=== PATIENT | male | born 1960 ===

== ENCOUNTER 2017-11-08 09:27 | Day surgery (SDC) | payer SELFPAY ==
[2017-10-31 11:49] VITALS: BMI 32.1
[~2017-11-08 09:27] MED LIST: Propofol 10 mg/ml Inj (20 ML) ONE
[2017-11-08] MEDS ORDERED: HYDROmorphone 0.5 mg/0.5 ml ISec IVP PRN (09:59)
[2017-11-08] MEDS ORDERED: Lactated Ringer's 1,000 ML IV SCH (10:00)
[2017-11-08] MEDS ORDERED: Gentamicin 160 MG in Sodium Chloride 0.9% 100 ML IVPB ONE (10:33)
[2017-11-08] MEDS ORDERED: Iohexol 240 (50 ml) ONE (10:34)
[2017-11-08] MEDS ORDERED: Lidocaine 2% Jelly (Uro-Jet) ONE (10:34)
[2017-11-08] MEDS ORDERED: ePHEDrine 50 mg/ml Inj ONE (11:24)
--- NOTE | 2017-11-08 12:42 | PCM.SURG1 ---
Surgeon's Initial Post Op Note - Surgeon's Notes Surgeon: Grayson Cohen Nuclear Medicine Technician: none Type of Anesthesia: General LMA Pre-Operative Diagnosis: R ureteral calculus. R renal calculus Operative Findings: same Post-Operative Diagnosis: same Operation Performed: cystoscopy. R ureteroscopy, laser uretero-lithotripsy, stone basketing. R flexible uretrorenoscopy, stone transposition, laser lithotripsy. Stent insertion Specimen/Specimens Removed: uretral stone fragments. renal stone fragments Estimated Blood Loss: EBL {In ML}: 0 Blood Products Given: N/A Post-Op Condition: Good Date of Surgery/Procedure: 11/08/17 Time of Surgery/Procedure: 12:35
[2017-11-08] MEDS ORDERED: Lactated Ringer's 1,000 ML IV ONE (12:49)
[2017-11-08] MEDS ORDERED: HYDROmorphone 0.5 mg/0.5 ml ISec ONE ×2 (13:05→13:28)
[2017-11-08] MEDS: HYDROmorphone 0.5 mg/0.5 ml ISec IVP PRN ×2 (13:05→13:27)
[2017-11-08 14:30] VITALS: O2SAT 100
[2017-11-08] MEDS ORDERED: Oxycodone/Acetaminophen 5/325 mg Tab PO PRN (14:36)
[2017-11-08 15:20] VITALS: RESP 16; TEMP 97.4
--- NOTE | 2017-11-08 16:31 | RAD ---
Indication: Right renal stone, urolithiasis Abdomen with oblique radiographs Comparison: None available Findings: Right ureteral stent. 12 x 8 mm right upper pole calcification consistent with renal calculus. Subsequent images demonstrate smaller fragmented calculi the level the right kidney. Tiny left upper quadrant calcifications may reflect renal calculi. Nonobstructive bowel gas pattern. Degenerative changes of the lumbar spine. Impression: Right ureteral stent. Initial images demonstrate 12 x 8 mm right upper pole calcification consistent with renal calculus. Subsequent images within this examination with time stamp approximately 1.5 hrs. later demonstrate smaller fragmented calculi the level the right kidney. Correlate clinically. Tiny left upper quadrant calcifications may also reflect renal calculi.
--- NOTE | 2017-11-08 16:38 | RAD ---
PROCEDURE: Intraoperative Fluoroscopy. HISTORY: RT. RENAL STONE FINDINGS: Fluoroscopic assistance was provided. 119.1 seconds fluoroscopy tightening this procedure. Radiation dose = 3.71 mGy- cm.. Please refer to the operative report from Dr. SPANN, PINELAND.
[2017-11-08 18:23] VITALS: BP 157/86; PULSE 65
--- NOTE | 2017-11-11 12:05 | OP ---
PROCEDURE DATE: PREOPERATIVE DIAGNOSIS: Urolithiasis. POSTOPERATIVE DIAGNOSES: Urolithiasis. Right ureteral calculus. Right renal calculus. PROCEDURES: Cystoscopy. Right ureteroscopy. Laser right ureteral lithotripsy. Right ureteral stone basketing. For the procedure right flexible ureterorenoscopy. Right renal stone transposition. Right renal laser lithotripsy. Insertion of right ureteral stent. Procedure was performed under video endoscopic control as well as on the fluoroscopic control. DESCRIPTION OF PROCEDURE: Procedure as follows; the patient received perioperative antibiotics. The patient was placed in lithotomy position. Genitalia prepped and draped sterilely. General anesthesia was administered. A 22-Finnish cystoscope sheath was introduced under direct vision. Urethra, prostate, bladder were inspected. Urine was sent for bacteriologic examination. There was noted to be mild cystitis. There was no bladder tumor. There was no bladder stone. The right ureteral stent was in place. The stent was grasped using the rigid grasping forceps and brought up to the level of the distal end of the cystoscope sheath. A 0.035-inch guidewire was inserted into the ureteral stent. The guidewire was passed up to level of kidney. The admission liaison fluoroscopy revealed the right distal ureteral stone as well as a right renal stone. The 7-Finnish mini rigid ureteroscope was introduced through the cystoscope sheath. The right ureteral orifice identified. A second guidewire was inserted under ureteroscopic control into the orifice and passed up to level of kidney. The ureteroscope was advanced in an atraumatic fashion under direct vision. The right ureteral stone was encountered. Ureteral laser lithotripsy was performed with the holmium laser and 365 micron fiber. There was excellent fragmentation obtained. All fragments were removed using the stone basket. The guidewire was reinserted up to level of kidney. A ureteral access sheath 12/14 Finnish was inserted over the wire. Under fluoroscopic control, after the cystoscope sheath had been removed. Ureterorenoscopy was performed using the 7-Finnish flexible ureteroscope. Ureteroscope passed over the guidewire over the working wire into the ureter and then into the kidney. Ureterorenoscopy was performed. The stone was encountered. Attempt at laser lithotripsy was performed with the stone in the lower pole. However, the stone and laser fiber could not be seen at the same time. The stone was engaged with the stone basket. The stone was then moved under video endoscopic control as well as under fluoroscopic control from the lower pole to the upper pole. Laser lithotripsy was then performed under direct vision. Excellent fragmentation of the right renal stone was obtained. Ureteroscope was then removed under direct vision along with the ureteral access sheath. The ureter was intact without mucosal injury. The cystoscope was back loaded over the remaining safety wire. The 6-Finnish multilength stent was inserted over the guidewire. Proper stent position was confirmed with fluoroscopy and endoscopy. A distal suture was left to exit per urethra from the stent. The bladder was then drained. Cystoscope sheath removed. The rectal examination was performed. Prostate was supple and smooth approximately 25-30 grams in size, without fixation, induration or nodularity. The patient tolerated procedure without complication. Jaleesa Cohen MD
== END 2017-11-08 17:22 | disposition home or self-care (01) ==
LOC: C.SDS 09:27
PROVIDERS: ATTEND Urology
DX: N20.2 Calculus of kidney with calculus of ureter (principal); I10 Essential (primary) hypertension; E78.5 Hyperlipidemia, unspecified; F17.210 Nicotine dependence, cigarettes, uncomplicated
CPT/HCPCS: 52356; 74019; 82355; 82365; 82948; 87086; J1170; J1580; J7120

== ENCOUNTER 2017-12-09 23:53 | Inpatient (IN) | payer MEDICAID, SELFPAY ==
[2017-12-09 23:53] VITALS: BMI 32.1
[2017-12-10] MEDS ORDERED: Sodium Chloride 0.9% 1,000 ML IV ONE (00:19)
--- NOTE | 2017-12-10 00:19 | C.PDOC ---
History Of Present Illness Patient presents to the ER with a complaint of increased urinary frequency, urgency, and difficulty urinating. Patient states he goes to the bathroom, voids a little, then feels like he has to go again. Patient also reports having associated fever and chills; but denies nausea or vomiting. Time Seen by Provider: 12/10/17 00:19 Chief Complaint (Nursing): Male Genitourinary History Per: Patient History/Exam Limitations: no limitations Onset/Duration Of Symptoms: Hrs Current Symptoms Are (Timing): Still Present Severity: Moderate Pain Scale Rating Of: 4 Quality Of Discomfort: Unable To Describe Associated Symptoms: Fever, Chills, Urinary Symptoms (Frequency, urgency, difficulty voiding). denies: Nausea, Vomiting Alleviating Factors: None Recent travel outside of the [place]: No Additional History Per: Family Past Medical History Reviewed: Historical Data, Nursing Documentation, Vital Signs Vital Signs: Last Vital Signs Temp 100.8 F H 12/10/17 01:01 Pulse 85 12/10/17 01:01 Resp 20 12/10/17 01:01 BP 159/77 H 12/10/17 00:01 Pulse Ox 97 12/10/17 01:01 - Medical History PMH: HTN, Hypercholesterolemia, Kidney Stones, Chronic Kidney Disease Family History: States: No Known Family Hx - Social History Hx Alcohol Use: No Hx Substance Use: No - Immunization History Hx Tetanus Toxoid Vaccination: No Hx Influenza Vaccination: Yes Hx Pneumococcal Vaccination: Yes Review Of Systems Constitutional: Positive for: Fever, Chills Gastrointestinal: Negative for: Nausea, Vomiting Genitourinary: Positive for: Frequency, Other (Urgency, Difficulty voiding) Physical Exam - Physical Exam Appears: Non-toxic Skin: Warm, Dry Head: Normacephalic Eye(s): bilateral: Normal Inspection Oral Mucosa: Moist Neck: Supple Chest: Symmetrical, No Tenderness Cardiovascular: Rhythm Regular Respiratory: No Rales, No Rhonchi, No Wheezing Gastrointestinal/Abdominal: Soft, Tenderness (Suprapubic), No Guarding, No Rebound Back: No CVA Tenderness, Other (Mild right flank tenderness) Male Genital: No Testicular Swelling, No Inguinal Tenderness Extremity: Normal ROM Extremity: Bilateral: Atraumatic Pulses: Left Dorsalis Pedis: Normal, Right Dorsalis Pedis: Normal Neurological/Psych: Oriented x3, Normal Speech Gait: Steady ED Course And Treatment - Laboratory Results Result Diagrams: 12/10/17 00:29 12/10/17 00:29 O2 Sat by Pulse Oximetry: 98 (Room air) Pulse Ox Interpretation: Normal Progress Note: Blood work and urinalysis ordered. IV fluids and tylenol administered. Disposition Discussed With Dr.: Ben El Comment: accepted the pt on his service and took over the care at 3:18 AM Doctor Will See Patient In The: ED Counseled Patient/Family Regarding: Studies Performed, Diagnosis - Disposition Referrals: Damon Mcmahon MD [Primary Care Provider] - Disposition: HOSPITALIZED Disposition Time: 00:19 Condition: FAIR Forms: [facility] (Polish) - Clinical Impression Clinical Impression: Pyelonephritis - Scribe Statement The provider has reviewed the documentation as recorded by the Scribe Daniel Swenson All medical record entries made by the Scribe were at my direction and personally dictated by me. I have reviewed the chart and agree that the record accurately reflects my personal performance of the history, physical exam, medical decision making, and the department course for this patient. I have also personally directed, reviewed, and agree with the discharge instructions and disposition. Decision To Admit - Pt Status Changed To: Hospital Disposition Of: Inpatient - Admit Certification Admit to Inpatient:: After my assessment, the patient will require hospitalization for at least two midnights. This is because of the severity of symptoms shown, intensity of services needed, and/or the medical risk in this patient being treated as an outpatient. - InPatient: Physician Admission Certification: I certify that this patient requires 2 or more midnights of care for the following reason:: After my assessment, the patient will require hospitalization for at least two midnights. This is because of the severity of symptoms shown, intensity of services needed, and/or the medical risk in this patient being treated as an outpatient. - . Bed Request Type: Regular Admitting Physician: Ben El Patient Diagnosis: Pyelonephritis
[2017-12-10] MEDS ORDERED: Sodium Chloride 0.9% 1,000 ML ONE (00:26)
[2017-12-10 00:32] LABS: BASO # 0.1 K/uL (0.0-0.2); BASO % 0.7 % (0.0-2.0); EOS % 0.2 % (0.0-4.0); HEMOGLOBIN 12.6 g/dL (12.0-18.0); LYMPH # 2.1 K/uL (1.0-4.3); LYMPH % 11.2 % (20.0-40.0); MEAN CELL VOLUME 90.1 fL (80.0-94.0); MEAN CORPUSCULAR HEMOGLOBIN 30.3 pg (27.0-31.0); MEAN CORPUSCULAR HGB CONC 33.6 g/dL (33.0-37.0); MEAN PLATELET VOLUME 6.9 fL (7.2-11.7); MONO # 2.2 K/uL (0.0-0.8); MONO % 11.7 % (0.0-10.0); NEUT # 14.5 K/uL (1.8-7.0); NEUT % 76.2 % (50.0-75.0); RBC 4.15 Mil/uL (4.40-5.90); RED CELL DISTRIBUTION WIDTH 13.7 % (11.5-14.5)
[2017-12-10 00:43] LABS: VENOUS BLOOD GAS BASE EXCESS -3.2 mmol/L (0.0-2.0); VENOUS BLOOD GAS PCO2 29 mmHg (40-60); VENOUS BLOOD GAS PO2 39 mm/Hg (30-55); VENOUS BLOOD PH 7.44 (7.32-7.43)
[2017-12-10 00:45] LABS: ALB/GLOB RATIO 1.4 (1.0-2.1); ALBUMIN 4.4 g/dL (3.5-5.0); ALT/SGPT 41 U/L (21-72); AST/SGOT 33 U/L (17-59); BLOOD UREA NITROGEN 18 mg/dL (9-20); CALCIUM 8.9 mg/dl (8.6-10.4); GFR AFRICAN-AMERICAN > 60; GFR NON-AFRICAN AMERICAN > 60
[2017-12-10] MEDS ORDERED: Piperacillin/Tazobact 3.375 gm 100 ML IVPB STA (00:47)
[2017-12-10 00:51] LABS: SQUAMOUS EPITHIAL < 1 /hpf (0-5); URINE BACTERIA MOD (<OCC); URINE BILIRUBIN NEGATIVE (NEGATIVE); URINE BLOOD 3+ (NEGATIVE); URINE CLARITY Hazy (Clear); URINE COLOR Red (YELLOW); URINE GLUCOSE (UA) NORMAL (Normal); URINE LEUKOCYTE ESTERASE 3+ Leu/uL (Negative); URINE PROTEIN 2+ mg/dL (NEGATIVE); URINE UROBILINOGEN NORMAL mg/dL (0.2-1.0)
[2017-12-10] MEDS ORDERED: Piperacill/Tazo 3.375gm in Dex 3.375 GM/50 ML BAG IVPB STA (00:51)
[2017-12-10] MEDS ORDERED: Iodixanol 320 MG/ML 100 ML BOTTLE IV ONE (03:43)
[2017-12-10] MEDS ORDERED: Glucagon Recombinant 1 mg Inj IM PRN (04:20)
[2017-12-10] MEDS ORDERED: Dextrose 50% SYRINGE Inj (50 ml) IV PRN (04:20)
--- NOTE | 2017-12-10 04:33 | CP.PCM.HP ---
Addendum entered and electronically signed by Mary Beth Higgins 12/10/17 04:51 : Constipation meds: colace 100mg po BID Lactulose 20gm po HS Original Note: <Mary Beth Higgins - Last Filed: 12/10/17 04:24> History of Present Illness - History of Present Illness History of Present Illness: CC: pain with urination HPI: Patient is a 56 year old male with past medical history of HTN, DM II, HLD , and TIA (02/13) who presents today for worsening urinary symptoms. Patient had some increased urination with darkening in color starting one month ago. He was given a referral to see Dr. Jaleesa Cohen who prescribed him Tamsulosin .4 mg daily and Doxycycline 100mg BID for 10 days (according to the bottle). Patient was taking the Doxycyline once a day since first prescribed one month ago. This past week patient's symptoms have been worsening. Patient says he has burning when he urinates and feels the urge to urinate often but can only urinate a little bit at a time. He also says his urine is dark in color. For the past day patient has felt subjective fevers. He went to Dr. Cohen's office who told him to go to the ER. Patient says this past week he has also been having right sided lower abdominal pain which radiates to the back. At its worst it is a 9/10 , but currently in the ER he rates it as a 5/10. Patient also complains of constipation for the past two months. He has been having bowel movements, but it is less than usual. He has been trying to manage the constipation by adding aloe and cucumber juice to his diet. Patient also complains of lethargy in his lower legs for the past two months. He is still able to walk normally and has no pain, but feels his legs are very tired. Patient denies any chest pain, shortness of breath, nausea, or vomiting. PMD: Dr. Mcmahon PMHx: HTN, DMII, HLD, TIA (02/13) Psurg: none Famhx: Mom: DMII, glaucoma Socialhx: started smoking 10 years ago about 3-4 cigarettes per day, denies alcohol and drug use Allergies:NKDA Home meds: Glimepiride 2mg po daily, Doxycycline 100mg po BID (taking one per day), Neurontin 100mg po dialy, Lipitor 40mg po daily, Flomax .4 mg po daily, Lisinopril 20mg po daily, Metformin 500 mg po daily Present on Admission - Present on Admission Any Indicators Present on Admission: No History of DVT/PE: No History of Uncontrolled Diabetes: No Urinary Catheter: No Decubitus Ulcer Present: No Review of Systems - Constitutional Constitutional: Chills, Fever, Headache - EENT Eyes: absent: Blurred Vision Nose/Mouth/Throat: absent: Nasal Congestion, Sore Throat - Cardiovascular Cardiovascular: absent: Chest Pain, Dyspnea, Leg Edema, Palpitations - Respiratory Respiratory: absent: Cough, Dyspnea, Chest Congestion - Gastrointestinal Gastrointestinal: Abdominal Pain, Constipation. absent: Diarrhea, Nausea, Vomiting - Genitourinary Genitourinary: Change in Urinary Stream, Difficulty Urinating, Dysuria, Nocturia , Urinary Frequency, Urinary Urgency, Voiding Freq/Small Amts - Musculoskeletal Musculoskeletal: absent: Myalgias - Integumentary Integumentary: absent: Rash - Neurological Neurological: Weakness. absent: Numbness, Tingling - Hematologic/Lymphatic Hematologic: absent: Easy Bleeding, Easy Bruising Past Patient History - Infectious Disease Hx of Infectious Diseases: None - Past Medical History & Family History Past Medical History?: Yes - Past Social History Smoking Status: Light Smoker < 10 Cigarettes Daily - CARDIAC Hx Hypercholesterolemia: Yes Hx Hypertension: Yes - NEUROLOGICAL Hx Neurological Disorder: Yes HX Cerebrovascular Accident: Yes - RENAL Hx Chronic Kidney Disease: Yes Hx Kidney Stones: Yes - ENDOCRINE/METABOLIC Hx Endocrine Disorders: Yes Hx Diabetes Mellitus Type 2: Yes - GENITOURINARY/GYNECOLOGICAL Hx Genitourinary Disorders: Yes Hx Hematuria: Yes - PSYCHIATRIC Hx Substance Use: No - SURGICAL HISTORY Hx Surgeries: Yes Other/Comment: Right kidney stent - ANESTHESIA Hx Anesthesia: Yes Hx Anesthesia Reactions: No Hx Malignant Hyperthermia: No Meds Allergies/Adverse Reactions: Allergies Allergy/AdvReac Type Severity Reaction Status Date / Time No Known Allergies Allergy Verified 12/09/17 23:56 Physical Exam - Constitutional Appears: Non-toxic - Head Exam Head Exam: ATRAUMATIC, NORMAL INSPECTION, NORMOCEPHALIC - Eye Exam Eye Exam: EOMI, Normal appearance - ENT Exam ENT Exam: Mucous Membranes Moist - Respiratory Exam Respiratory Exam: Clear to Auscultation Bilateral, NORMAL BREATHING PATTERN. absent: Rales, Rhonchi, Wheezes, Respiratory Distress, Stridor - Cardiovascular Exam Cardiovascular Exam: REGULAR RHYTHM, RRR, +S1, +S2 - GI/Abdominal Exam GI & Abdominal Exam: Normal Bowel Sounds, Soft, Tenderness - Extremities Exam Extremities exam: Positive for: normal inspection. Negative for: pedal edema, tenderness - Back Exam Back exam: NORMAL INSPECTION. absent: CVA tenderness (L), CVA tenderness (R), paraspinal tenderness - Neurological Exam Neurological exam: Alert, Oriented x3 - Psychiatric Exam Psychiatric exam: Normal Affect, Normal Mood - Skin Skin Exam: Intact, Normal Color, Warm Results - Vital Signs Recent Vital Signs: Last Vital Signs Temp 100.8 F H 12/10/17 01:01 Pulse 85 12/10/17 01:01 Resp 20 12/10/17 01:01 BP 159/77 H 12/10/17 00:01 Pulse Ox 98 12/10/17 03:20 - Labs Result Diagrams: 12/10/17 00:29 12/10/17 00:29 Labs: Laboratory Results - last 24 hr 12/10/17 12/10/17 12/10/17 00:29 00:29 00:29 WBC 19.0 H D RBC 4.15 L Hgb 12.6 Hct 37.4 MCV 90.1 D MCH 30.3 MCHC 33.6 RDW 13.7 Plt Count 274 MPV 6.9 L Neut % (Auto) 76.2 H Lymph % (Auto) 11.2 L Walton % (Auto) 11.7 H Eos % (Auto) 0.2 Baso % (Auto) 0.7 Neut # (Auto) 14.5 H Lymph # (Auto) 2.1 Walton # (Auto) 2.2 H Eos # (Auto) 0.0 Baso # (Auto) 0.1 pO2 VBG pH VBG pCO2 VBG HCO3 VBG Total CO2 VBG O2 Sat (Calc) VBG Base Excess VBG Potassium Glucose Lactate Sodium 133 Potassium 4.4 Chloride 94 L Carbon Dioxide 25 Anion Gap 20 BUN 18 Creatinine 1.0 Est GFR ( Amer) > 60 Est GFR (Non-Af Amer) > 60 Random Glucose 143 H Calcium 8.9 Total Bilirubin 0.8 AST 33 ALT 41 Alkaline Phosphatase 82 Total Protein 7.5 Albumin 4.4 Globulin 3.1 Albumin/Globulin Ratio 1.4 Venous Blood Potassium Urine Color Red Urine Clarity Hazy Urine pH 5.0 Ur Specific [place] 1.009 Urine Protein 2+ H Urine Glucose (UA) Normal Urine Ketones Negative Urine Blood 3+ H Urine Nitrate Positive H Urine Bilirubin Negative Urine Urobilinogen Normal Ur Leukocyte Esterase 3+ H Urine WBC (Auto) 300 H Urine RBC (Auto) 99 H Ur Squamous Epith Cells < 1 Ur Transition Epith Cell < 1 Urine Bacteria Mod H 12/10/17 00:39 WBC RBC Hgb Hct MCV MCH MCHC RDW Plt Count MPV Neut % (Auto) Lymph % (Auto) Walton % (Auto) Eos % (Auto) Baso % (Auto) Neut # (Auto) Lymph # (Auto) Walton # (Auto) Eos # (Auto) Baso # (Auto) pO2 39 VBG pH 7.44 H VBG pCO2 29 L VBG HCO3 21.9 VBG Total CO2 20.6 L VBG O2 Sat (Calc) 80.0 H VBG Base Excess -3.2 L VBG Potassium 2.7 L Glucose 117 H Lactate 0.6 L Sodium 136.0 Potassium Chloride 107.0 Carbon Dioxide Anion Gap BUN Creatinine Est GFR ( Amer) Est GFR (Non-Af Amer) Random Glucose Calcium Total Bilirubin AST ALT Alkaline Phosphatase Total Protein Albumin Globulin Albumin/Globulin Ratio Venous Blood Potassium 2.7 L Urine Color Urine Clarity Urine pH Ur Specific [place] Urine Protein Urine Glucose (UA) Urine Ketones Urine Blood Urine Nitrate Urine Bilirubin Urine Urobilinogen Ur Leukocyte Esterase Urine WBC (Auto) Urine RBC (Auto) Ur Squamous Epith Cells Ur Transition Epith Cell Urine Bacteria Assessment & Plan - Assessment and Plan (Free Text) Assessment: 1. Pyelonephritis WBC: 19, follow cbc UA: protein 2+, blood 3+, nitrate positive, leuk esterase 3+, wbc 300, rbc 99, bacteria moderate f/u urine culture, blood culture, procalc f/u abd and pelvis CT with iv contrast Meds: Tylenol 650mg prn fevers Zosyn 3.375 q6h 2. BPH Flomax .4 mg po daily 3. DM II accuchecks ACHS hypoglycemia protocol f/u HgA1C Meds: Neurontin 100mg po daily Glimepiride 2mg po daily hold metformin ISS-low 4. HTN Lisinopril 20mg po daily 5. HLD f/u lipid panel Crestor 10mg po HS 6. Prophylaxis Heparin 5000 u sc q8h, scds Pepcid 20mg po daily diabetic and heart healthy diet <Ben El - Last Filed: 12/10/17 06:25> Results - Vital Signs Recent Vital Signs: Last Vital Signs Temp 98.7 F 12/10/17 04:30 Pulse 79 12/10/17 04:30 Resp 20 12/10/17 04:30 BP 126/70 12/10/17 04:30 Pulse Ox 96 12/10/17 04:30 - Labs Result Diagrams: 12/10/17 00:29 12/10/17 00:29 Labs: Laboratory Results - last 24 hr 12/10/17 12/10/17 12/10/17 00:29 00:29 00:29 WBC 19.0 H D RBC 4.15 L Hgb 12.6 Hct 37.4 MCV 90.1 D MCH 30.3 MCHC 33.6 RDW 13.7 Plt Count 274 MPV 6.9 L Neut % (Auto) 76.2 H Lymph % (Auto) 11.2 L [place] % (Auto) 11.7 H Eos % (Auto) 0.2 Baso % (Auto) 0.7 Neut # (Auto) 14.5 H Lymph # (Auto) 2.1 [place] # (Auto) 2.2 H Eos # (Auto) 0.0 Baso # (Auto) 0.1 pO2 VBG pH VBG pCO2 VBG HCO3 VBG Total CO2 VBG O2 Sat (Calc) VBG Base Excess VBG Potassium Glucose Lactate Sodium 133 Potassium 4.4 Chloride 94 L Carbon Dioxide 25 Anion Gap 20 BUN 18 Creatinine 1.0 Est GFR ( Amer) > 60 Est GFR (Non-Af Amer) > 60 POC Glucose (mg/dL) Random Glucose 143 H Calcium 8.9 Total Bilirubin 0.8 AST 33 ALT 41 Alkaline Phosphatase 82 Total Protein 7.5 Albumin 4.4 Globulin 3.1 Albumin/Globulin Ratio 1.4 Venous Blood Potassium Urine Color Red Urine Clarity Hazy Urine pH 5.0 Ur Specific [place] 1.009 Urine Protein 2+ H Urine Glucose (UA) Normal Urine Ketones Negative Urine Blood 3+ H Urine Nitrate Positive H Urine Bilirubin Negative Urine Urobilinogen Normal Ur Leukocyte Esterase 3+ H Urine WBC (Auto) 300 H Urine RBC (Auto) 99 H Ur Squamous Epith Cells < 1 Ur Transition Epith Cell < 1 Urine Bacteria Mod H 12/10/17 12/10/17 00:39 04:38 WBC RBC Hgb Hct MCV MCH MCHC RDW Plt Count MPV Neut % (Auto) Lymph % (Auto) [place] % (Auto) Eos % (Auto) Baso % (Auto) Neut # (Auto) Lymph # (Auto) [place] # (Auto) Eos # (Auto) Baso # (Auto) pO2 39 VBG pH 7.44 H VBG pCO2 29 L VBG HCO3 21.9 VBG Total CO2 20.6 L VBG O2 Sat (Calc) 80.0 H VBG Base Excess -3.2 L VBG Potassium 2.7 L Glucose 117 H Lactate 0.6 L Sodium 136.0 Potassium Chloride 107.0 Carbon Dioxide Anion Gap BUN Creatinine Est GFR ( Amer) Est GFR (Non-Af Amer) POC Glucose (mg/dL) 138 H Random Glucose Calcium Total Bilirubin AST ALT Alkaline Phosphatase Total Protein Albumin Globulin Albumin/Globulin Ratio Venous Blood Potassium 2.7 L Urine Color Urine Clarity Urine pH Ur Specific [place] Urine Protein Urine Glucose (UA) Urine Ketones Urine Blood Urine Nitrate Urine Bilirubin Urine Urobilinogen Ur Leukocyte Esterase Urine WBC (Auto) Urine RBC (Auto) Ur Squamous Epith Cells Ur Transition Epith Cell Urine Bacteria Assessment & Plan - Date & Time Date: 12/10/17 (I have seen and examined the patient. I agree with the findings and plan of care as documented by Dr. Higgins. Patient with pyelonephritis. Previously treated for possible UTI with Doxy but was taking medication incorrectly. Zosyn for now. Check urine and blood cultures. Continue Tamsulosin for history of BPH. Monitor for hemodynamic stability. Monitor for acute changes.) Time: 06:23 Attending/Attestation - Attestation I have personally seen and examined this patient.: Yes I have fully participated in the care of the patient.: Yes I have reviewed all pertinent clinical information: Yes
--- NOTE | 2017-12-10 05:01 | CT ---
EXAM: CT Abdomen and Pelvis With Intravenous Contrast CLINICAL HISTORY: 56 years old, male; Pain; Abdominal pain; Localized; Right lower quadrant (rlq); Prior surgery; Surgery date: 3-7 days post-operative; Additional info: Pyelonephritis TECHNIQUE: Axial computed tomography images of the abdomen and pelvis with intravenous contrast. All CT scans at this facility use one or more dose reduction techniques, viz.: automated exposure control; ma/kV adjustment per patient size (including targeted exams where dose is matched to indication; i.e. head); or iterative reconstruction technique. Coronal and sagittal reformatted images were created and reviewed. CONTRAST: 100 mL of [id number] administered intravenously. COMPARISON: No relevant prior studies available. FINDINGS: Lower thorax: Minimal atelectasis/scarring. ABDOMEN: Liver: Unremarkable. No mass. Gallbladder and bile ducts: No calcified stones. No ductal dilation. Pancreas: No ductal dilation. No mass. Spleen: No splenomegaly. Adrenals: No mass. Kidneys and ureters: Mild stranding about RIGHT kidney. Minimal stranding about LEFT kidney. Several small renal calculi. Minimal pelvocaliectasis of RIGHT kidney. Minimally dilated RIGHT ureter. RIGHT ureteral stent. Mild stranding about RIGHT ureter. Stomach and bowel: No definite mural thickening. No obstruction. Appendix: Normal caliber. No inflammation. PELVIS: Bladder: Borderline bladder wall thickening, 4-5 mm. Minimal haziness about bladder. Reproductive: Enlarged prostate gland. ABDOMEN and PELVIS: Intraperitoneal space: No significant fluid collection. No free air. Bones/joints: Degenerative changes of spine. No acute fracture. Soft tissues: Unremarkable. Vasculature: Mild atherosclerotic disease. No aneurysm. Lymph nodes: No pathologically enlarged lymph nodes. IMPRESSION: 1. Stranding about kidneys, right ureter, bladder. Correlate with urinalysis to exclude infection. 2. Prostate enlargement. Followup as clinically warranted. 3. Incidental/non-acute findings are described above.
[2017-12-10] MEDS: Piperacill/Tazo 3.375gm in Dex 3.375 GM/50 ML BAG IVPB SCH ×4 (05:30→22:03)
--- NOTE | 2017-12-10 07:48 | CP.PCM.PN ---
<Marc Dickerson - Last Filed: 12/10/17 13:18> Subjective - Date & Time of Evaluation Date of Evaluation: 12/10/17 Time of Evaluation: 07:20 - Subjective Subjective: Medicine progress note for Dr. Phillips Patient seen and examined at bedside. Patient reports improvements in his dysuria after starting IV antibiotics. Patient states that he is urinating an increased amount compared to before. He remains with mild abdominal tenderness in the right lower quadrant. Patient also complaining of constipation. His last BM was yesterday, but he noted it was very minimal. Objective - Vital Signs/Intake and Output Vital Signs (last 24 hours): Temp Pulse Resp BP Pulse Ox 98.7 F 79 20 126/70 96 12/10/17 04:30 12/10/17 04:30 12/10/17 04:30 12/10/17 04:30 12/10/17 04:30 - Medications Medications: Current Medications Acetaminophen (Tylenol 325mg Tab) 650 mg PO Q6 PRN PRN Reason: Fever >100.4 F Dextrose (Dextrose 50% Inj) 0 ml IV STAT PRN; Protocol PRN Reason: Hypoglycemia Protocol Dextrose (Glutose 15) 0 gm PO ONCE PRN; Protocol PRN Reason: Hypoglycemia Protocol Docusate Sodium (Colace) 100 mg PO BID [facility] Famotidine (Pepcid) 20 mg PO DAILY [facility] Gabapentin (Neurontin) 100 mg PO DAILY [facility] Glimepiride (Amaryl) 2 mg PO DAILY [facility] Glucagon (Glucagen Diagnostic Kit) 0 mg IM STAT PRN; Protocol PRN Reason: Hypoglycemia Protocol Heparin Sodium (Porcine) (Heparin) 5,000 units SC Q8 [facility] Last Admin: 12/10/17 06:00 Dose: 5,000 units Piperacillin Sod/Tazobactam Sod (Zosyn 3.375 Gm Iv Premix) 3.375 gm in 50 mls @ 100 mls/hr IVPB Q6H [facility] PRN Reason: Protocol Last Admin: 12/10/17 05:30 Dose: 100 mls/hr Insulin Human Regular (Novolin R) 0 unit SC ACHS [facility] PRN Reason: Protocol Lactulose (Enulose) 20 gm PO HS [facility] Lisinopril (Zestril) 20 mg PO DAILY [facility] Rosuvastatin Calcium (Crestor) 10 mg PO HS [facility] Tamsulosin HCl (Flomax) 0.4 mg PO DAILY [facility] - Labs Labs: 12/10/17 00:29 12/10/17 00:29 - Constitutional Appears: No Acute Distress - Head Exam Head Exam: ATRAUMATIC, NORMOCEPHALIC - Eye Exam Eye Exam: EOMI, Normal appearance - ENT Exam ENT Exam: Mucous Membranes Moist - Respiratory Exam Respiratory Exam: Clear to Ausculation Bilateral, NORMAL BREATHING PATTERN. absent: Rales, Rhonchi, Wheezes - Cardiovascular Exam Cardiovascular Exam: REGULAR RHYTHM, +S1, +S2 - GI/Abdominal Exam GI & Abdominal Exam: Soft, Tenderness (right lower quadrant minimal tenderness) , Normal Bowel Sounds - Extremities Exam Extremities Exam: absent: Pedal Edema, Tenderness - Back Exam Back Exam: absent: CVA tenderness (L), CVA tenderness (R) - Neurological Exam Neurological Exam: Alert, Awake, Oriented x3 - Psychiatric Exam Psychiatric exam: Normal Affect, Normal Mood - Skin Skin Exam: Dry, Warm Assessment and Plan - Assessment and Plan (Free Text) Plan: Pyelonephritis in the setting of Hx of Nephrolithiasis s/p ureteral stenting On admission, UA: protein 2+, blood 3+, nitrate positive, leuk esterase 3+, wbc 300, rbc 99, bacteria moderate f/u urine culture, blood culture Procalcitonin low CT abdomen/pelvis with IV contrast demonstrates mild right perinephric, right ureteral, and bladder stranding Urology consult Dr. Ale Cohen, help appreciated. f/u Abdominal X-ray with oblique views Meds: Tylenol 650mg prn fever Zosyn 3.375 q6h started 12/10 BPH Flomax 0.4 mg po daily History of DM II accuchecks ACHS hypoglycemia protocol HgA1C 7.3 Meds: Neurontin 100mg po daily Glimepiride 2mg po daily hold metformin ISS-low History of HTN Lisinopril 20mg po daily History of HLD Lipid panel unremarkable Home lipitor 40 mg not on formulary--Crestor 20mg po HS Prophylaxis Heparin 5000 u sc q8h, scds Pepcid 20mg po daily diabetic/heart healthy diet Discussed with Dr. Alan Dickerson PGY-1 <Merle Phillips - Last Filed: 12/10/17 17:54> Objective - Vital Signs/Intake and Output Vital Signs (last 24 hours): Temp Pulse Resp BP Pulse Ox 102.1 F H 90 20 130/75 95 12/10/17 08:31 12/10/17 08:31 12/10/17 08:31 12/10/17 08:31 12/10/17 08:31 Intake and Output: 12/10/17 12/10/17 06:59 18:59 Intake Total 350 730 Output Total 400 Balance 350 330 - Medications Medications: Current Medications Acetaminophen (Tylenol 325mg Tab) 650 mg PO Q6 PRN PRN Reason: Fever >100.4 F Last Admin: 12/10/17 08:17 Dose: 650 mg Dextrose (Dextrose 50% Inj) 0 ml IV STAT PRN; Protocol PRN Reason: Hypoglycemia Protocol Dextrose (Glutose 15) 0 gm PO ONCE PRN; Protocol PRN Reason: Hypoglycemia Protocol Docusate Sodium (Colace) 100 mg PO BID [facility] Last Admin: 12/10/17 10:03 Dose: 100 mg Famotidine (Pepcid) 20 mg PO DAILY [facility] Last Admin: 12/10/17 10:05 Dose: 20 mg Gabapentin (Neurontin) 100 mg PO DAILY [facility] Last Admin: 12/10/17 10:04 Dose: 100 mg Glimepiride (Amaryl) 2 mg PO DAILY [facility] Last Admin: 12/10/17 10:02 Dose: 2 mg Glucagon (Glucagen Diagnostic Kit) 0 mg IM STAT PRN; Protocol PRN Reason: Hypoglycemia Protocol Heparin Sodium (Porcine) (Heparin) 5,000 units SC Q8 [facility] Last Admin: 12/10/17 13:31 Dose: 5,000 units Piperacillin Sod/Tazobactam Sod (Zosyn 3.375 Gm Iv Premix) 3.375 gm in 50 mls @ 100 mls/hr IVPB Q6H [facility] PRN Reason: Protocol Last Admin: 12/10/17 10:06 Dose: 100 mls/hr Insulin Human Regular (Novolin R) 0 unit SC ACHS [facility] PRN Reason: Protocol Last Admin: 12/10/17 11:43 Dose: 1 unit Lactulose (Enulose) 20 gm PO HS [facility] Lisinopril (Zestril) 20 mg PO DAILY [facility] Last Admin: 12/10/17 10:05 Dose: 20 mg Pneumococcal Polyvalent Vaccine (Pneumovax 23 Vaccine) 0.5 ml IM .ONCE ONE Stop: 03/16/18 10:01 Polyethylene Glycol (Miralax) 17 gm PO DAILY [facility] Last Admin: 12/10/17 10:04 Dose: 17 gm Rosuvastatin Calcium (Crestor) 20 mg PO HS [facility] Tamsulosin HCl (Flomax) 0.4 mg PO DAILY [facility] Last Admin: 12/10/17 10:03 Dose: 0.4 mg - Labs Labs: 12/10/17 07:46 12/10/17 07:46 Attending/Attestation - Attestation I have personally seen and examined this patient.: Yes I have fully participated in the care of the patient.: Yes I have reviewed all pertinent clinical information, including history, physical exam and plan: Yes Notes (Text): Patient was seen and examined with the resident. has fever spikes,leukocytosis, UTI/ pyelonephritis. Has right uriteric stent in place.Has Diabetes mellitus on amaryl.Metformin on hold. HA1c 7.3. His sugar this afternoon is in 80ies We will continue zosyn.Follow urine and blood cultures. IV hydration and monitor sugar. urologist follow up appreciated Plan discussed with the resident .I agree with the resident's documentation of the assessment and plan
[2017-12-10] MEDS: (Novolin R) Insulin Human Regular 100 units/ml vial SC SCH ×4 (07:58→22:08)
[2017-12-10 08:14] LABS: BASO # 0.1 K/uL (0.0-0.2); BASO % 0.7 % (0.0-2.0); EOS # 0.1 K/uL (0.0-0.7); EOS % 0.6 % (0.0-4.0); HEMOGLOBIN 11.8 g/dL (12.0-18.0); LYMPH # 1.3 K/uL (1.0-4.3); LYMPH % 8.2 % (20.0-40.0); MEAN CELL VOLUME 89.7 fL (80.0-94.0); MEAN CORPUSCULAR HEMOGLOBIN 30.3 pg (27.0-31.0); MEAN CORPUSCULAR HGB CONC 33.8 g/dL (33.0-37.0); MEAN PLATELET VOLUME 7.3 fL (7.2-11.7); MONO % 12.6 % (0.0-10.0); NEUT # 12.4 K/uL (1.8-7.0); NEUT % 77.9 % (50.0-75.0); PLATELET COUNT 264 K/uL (130-400); RBC 3.88 Mil/uL (4.40-5.90); RED CELL DISTRIBUTION WIDTH 13.5 % (11.5-14.5); WHITE BLOOD COUNT 15.9 K/uL (4.8-10.8)
[2017-12-10 08:22] LABS: ALB/GLOB RATIO 1.3 (1.0-2.1); ALBUMIN 3.7 g/dL (3.5-5.0); ALT/SGPT 39 U/L (21-72); AST/SGOT 31 U/L (17-59); BLOOD UREA NITROGEN 15 mg/dL (9-20); CALCIUM 8.7 mg/dl (8.6-10.4); GFR AFRICAN-AMERICAN > 60; GFR NON-AFRICAN AMERICAN > 60; HDL CHOLESTEROL 42 mg/dL (30-70)
[2017-12-10 08:33] LABS: LDL CHOLESTEROL 71 mg/dL (0-129)
[2017-12-10 09:33] LABS: LYMPHOCYTE 10 % (20-40); MONOCYTE 7 % (0-10); NEUTROPHIL 83 % (50-75); PLATELET ESTIMATE NORMAL (NORMAL); TOTAL CELLS COUNTED 100
[2017-12-10 09:34] LABS: HYPOCHROMIC SLIGHT
[2017-12-10] MEDS: POLYETHYLENE GLYCOL 3350 17 GM/Dose PACKET PO SCH (10:04)
--- NOTE | 2017-12-10 14:11 | PCM.URO ---
Urology Progress Note - Objective Lab Studies: Reviewed (full note to be dictated and timing of stent removal to be discussed Plans for now : antibiotic therapy) Lab Results Last 24 Hours: Laboratory Results - last 24 hr 12/10/17 12/10/17 12/10/17 00:29 00:29 00:29 WBC 19.0 H D RBC 4.15 L Hgb 12.6 Hct 37.4 MCV 90.1 D MCH 30.3 MCHC 33.6 RDW 13.7 Plt Count 274 MPV 6.9 L Neut % (Auto) 76.2 H Lymph % (Auto) 11.2 L [place] % (Auto) 11.7 H Eos % (Auto) 0.2 Baso % (Auto) 0.7 Neut # (Auto) 14.5 H Lymph # (Auto) 2.1 [place] # (Auto) 2.2 H Eos # (Auto) 0.0 Baso # (Auto) 0.1 Neutrophils % (Manual) Lymphocytes % (Manual) Monocytes % (Manual) Platelet Estimate Hypochromasia (manual) pO2 VBG pH VBG pCO2 VBG HCO3 VBG Total CO2 VBG O2 Sat (Calc) VBG Base Excess VBG Potassium Glucose Lactate Sodium 133 Potassium 4.4 Chloride 94 L Carbon Dioxide 25 Anion Gap 20 BUN 18 Creatinine 1.0 Est GFR ( Amer) > 60 Est GFR (Non-Af Amer) > 60 POC Glucose (mg/dL) Random Glucose 143 H Hemoglobin A1c Calcium 8.9 Phosphorus Magnesium Total Bilirubin 0.8 AST 33 ALT 41 Alkaline Phosphatase 82 Total Protein 7.5 Albumin 4.4 Globulin 3.1 Albumin/Globulin Ratio 1.4 Triglycerides Cholesterol LDL Cholesterol Direct HDL Cholesterol Procalcitonin Venous Blood Potassium Urine Color Red Urine Clarity Hazy Urine pH 5.0 Ur Specific [place] 1.009 Urine Protein 2+ H Urine Glucose (UA) Normal Urine Ketones Negative Urine Blood 3+ H Urine Nitrate Positive H Urine Bilirubin Negative Urine Urobilinogen Normal Ur Leukocyte Esterase 3+ H Urine WBC (Auto) 300 H Urine RBC (Auto) 99 H Ur Squamous Epith Cells < 1 Ur Transition Epith Cell < 1 Urine Bacteria Mod H 12/10/17 12/10/17 12/10/17 00:39 04:38 07:19 WBC RBC Hgb Hct MCV MCH MCHC RDW Plt Count MPV Neut % (Auto) Lymph % (Auto) [place] % (Auto) Eos % (Auto) Baso % (Auto) Neut # (Auto) Lymph # (Auto) [place] # (Auto) Eos # (Auto) Baso # (Auto) Neutrophils % (Manual) Lymphocytes % (Manual) Monocytes % (Manual) Platelet Estimate Hypochromasia (manual) pO2 39 VBG pH 7.44 H VBG pCO2 29 L VBG HCO3 21.9 VBG Total CO2 20.6 L VBG O2 Sat (Calc) 80.0 H VBG Base Excess -3.2 L VBG Potassium 2.7 L Glucose 117 H Lactate 0.6 L Sodium 136.0 Potassium Chloride 107.0 Carbon Dioxide Anion Gap BUN Creatinine Est GFR ( Amer) Est GFR (Non-Af Amer) POC Glucose (mg/dL) 138 H 151 H Random Glucose Hemoglobin A1c Calcium Phosphorus Magnesium Total Bilirubin AST ALT Alkaline Phosphatase Total Protein Albumin Globulin Albumin/Globulin Ratio Triglycerides Cholesterol LDL Cholesterol Direct HDL Cholesterol Procalcitonin Venous Blood Potassium 2.7 L Urine Color Urine Clarity Urine pH Ur Specific [place] Urine Protein Urine Glucose (UA) Urine Ketones Urine Blood Urine Nitrate Urine Bilirubin Urine Urobilinogen Ur Leukocyte Esterase Urine WBC (Auto) Urine RBC (Auto) Ur Squamous Epith Cells Ur Transition Epith Cell Urine Bacteria 12/10/17 12/10/17 12/10/17 07:46 07:46 07:46 WBC 15.9 H RBC 3.88 L Hgb 11.8 L Hct 34.8 L MCV 89.7 MCH 30.3 MCHC 33.8 RDW 13.5 Plt Count 264 MPV 7.3 Neut % (Auto) 77.9 H Lymph % (Auto) 8.2 L [place] % (Auto) 12.6 H Eos % (Auto) 0.6 Baso % (Auto) 0.7 Neut # (Auto) 12.4 H Lymph # (Auto) 1.3 [place] # (Auto) 2.0 H Eos # (Auto) 0.1 Baso # (Auto) 0.1 Neutrophils % (Manual) 83 H Lymphocytes % (Manual) 10 L Monocytes % (Manual) 7 Platelet Estimate Normal Hypochromasia (manual) Slight pO2 VBG pH VBG pCO2 VBG HCO3 VBG Total CO2 VBG O2 Sat (Calc) VBG Base Excess VBG Potassium Glucose Lactate Sodium 133 Potassium 4.0 Chloride 99 Carbon Dioxide 21 L Anion Gap 17 BUN 15 Creatinine 0.9 Est GFR ( Amer) > 60 Est GFR (Non-Af Amer) > 60 POC Glucose (mg/dL) Random Glucose 157 H Hemoglobin A1c Calcium 8.7 Phosphorus 2.7 Magnesium 1.7 Total Bilirubin 1.0 AST 31 ALT 39 Alkaline Phosphatase 80 Total Protein 6.5 Albumin 3.7 Globulin 2.8 Albumin/Globulin Ratio 1.3 Triglycerides 68 Cholesterol 133 LDL Cholesterol Direct 71 HDL Cholesterol 42 Procalcitonin 0.18 L Venous Blood Potassium Urine Color Urine Clarity Urine pH Ur Specific [place] Urine Protein Urine Glucose (UA) Urine Ketones Urine Blood Urine Nitrate Urine Bilirubin Urine Urobilinogen Ur Leukocyte Esterase Urine WBC (Auto) Urine RBC (Auto) Ur Squamous Epith Cells Ur Transition Epith Cell Urine Bacteria 12/10/17 12/10/17 07:46 11:06 WBC RBC Hgb Hct MCV MCH MCHC RDW Plt Count MPV Neut % (Auto) Lymph % (Auto) [place] % (Auto) Eos % (Auto) Baso % (Auto) Neut # (Auto) Lymph # (Auto) [place] # (Auto) Eos # (Auto) Baso # (Auto) Neutrophils % (Manual) Lymphocytes % (Manual) Monocytes % (Manual) Platelet Estimate Hypochromasia (manual) pO2 VBG pH VBG pCO2 VBG HCO3 VBG Total CO2 VBG O2 Sat (Calc) VBG Base Excess VBG Potassium Glucose Lactate Sodium Potassium Chloride Carbon Dioxide Anion Gap BUN Creatinine Est GFR ( Amer) Est GFR (Non-Af Amer) POC Glucose (mg/dL) 189 H Random Glucose Hemoglobin A1c 7.3 H Calcium Phosphorus Magnesium Total Bilirubin AST ALT Alkaline Phosphatase Total Protein Albumin Globulin Albumin/Globulin Ratio Triglycerides Cholesterol LDL Cholesterol Direct HDL Cholesterol Procalcitonin Venous Blood Potassium Urine Color Urine Clarity Urine pH Ur Specific [place] Urine Protein Urine Glucose (UA) Urine Ketones Urine Blood Urine Nitrate Urine Bilirubin Urine Urobilinogen Ur Leukocyte Esterase Urine WBC (Auto) Urine RBC (Auto) Ur Squamous Epith Cells Ur Transition Epith Cell Urine Bacteria Intake & Output: Intake & Output 12/09/17 12/10/17 12/10/17 18:59 06:59 18:59 Intake Total 350 Balance 350 Weight 205 lb Intake: Intake, IV Amount 50 Left Antecubital 50 Oral 300 Other: # Voids Urine, Voided 1 # Bowel Movements 0 Vital Signs: Vital Signs - 24 hr 12/10/17 12/10/17 12/10/17 00:01 01:01 03:20 Temperature 101.4 F H 100.8 F H Pulse Rate 102 H 85 Pulse Rate [ Bilateral Radial] Respiratory 20 20 Rate Blood Pressure 159/77 H O2 Sat by Pulse 98 97 98 Oximetry 12/10/17 12/10/17 12/10/17 04:30 08:17 08:31 Temperature 98.3 F 100.1 F H 102.1 F H Pulse Rate 77 90 Pulse Rate [ 77 Bilateral Radial] Respiratory 20 20 Rate Blood Pressure 129/66 130/75 O2 Sat by Pulse 96 95 Oximetry
--- NOTE | 2017-12-10 16:22 | RAD ---
HISTORY: History of nephrolithiasis COMPARISON: November 08 1017 FINDINGS: BOWEL: . No obstruction. No free air. The prior right renal calculus is no longer appreciated at its prior position just lateral to the right proximal stent nor along any portion of the ureteral stent. No bladder calculi noted BONES: Lumbar spondylosis. Bilateral hip arthrosis OTHER FINDINGS: None. IMPRESSION: Prior right renal calculus no longer identified. No interval or urolithiasis
[2017-12-11] MEDS: Piperacill/Tazo 3.375gm in Dex 3.375 GM/50 ML BAG IVPB SCH ×4 (04:27→21:47)
--- NOTE | 2017-12-11 06:56 | CP.PCM.PN ---
<Marc Dickerson - Last Filed: 12/11/17 15:18> Subjective - Date & Time of Evaluation Date of Evaluation: 12/11/17 Time of Evaluation: 07:10 - Subjective Subjective: Medicine progress note for Dr. Phillips Patient seen and examined. Patient denies urinary symptoms at this time though he does state that he had some liquid diarrhea after the laxatives that were given yesterday. No other acute complaints at this time. Objective - Vital Signs/Intake and Output Vital Signs (last 24 hours): Temp Pulse Resp BP Pulse Ox 98.6 F 85 20 128/69 97 12/11/17 00:00 12/11/17 00:00 12/11/17 00:00 12/11/17 00:00 12/11/17 00:00 Intake and Output: 12/10/17 12/11/17 18:59 06:59 Intake Total 730 700 Output Total 400 350 Balance 330 350 - Medications Medications: Current Medications Acetaminophen (Tylenol 325mg Tab) 650 mg PO Q6 PRN PRN Reason: Fever >100.4 F Last Admin: 12/10/17 22:08 Dose: 650 mg Dextrose (Dextrose 50% Inj) 0 ml IV STAT PRN; Protocol PRN Reason: Hypoglycemia Protocol Dextrose (Glutose 15) 0 gm PO ONCE PRN; Protocol PRN Reason: Hypoglycemia Protocol Docusate Sodium (Colace) 100 mg PO BID [facility] Last Admin: 12/10/17 17:52 Dose: 100 mg Famotidine (Pepcid) 20 mg PO DAILY [facility] Last Admin: 12/10/17 10:05 Dose: 20 mg Gabapentin (Neurontin) 100 mg PO DAILY [facility] Last Admin: 12/10/17 10:04 Dose: 100 mg Glimepiride (Amaryl) 2 mg PO DAILY [facility] Last Admin: 12/10/17 10:02 Dose: 2 mg Glucagon (Glucagen Diagnostic Kit) 0 mg IM STAT PRN; Protocol PRN Reason: Hypoglycemia Protocol Heparin Sodium (Porcine) (Heparin) 5,000 units SC Q8 [facility] Last Admin: 12/11/17 06:13 Dose: 5,000 units Piperacillin Sod/Tazobactam Sod (Zosyn 3.375 Gm Iv Premix) 3.375 gm in 50 mls @ 100 mls/hr IVPB Q6H [facility] PRN Reason: Protocol Last Admin: 12/11/17 04:27 Dose: 100 mls/hr Insulin Human Regular (Novolin R) 0 unit SC [facility] PRN Reason: Protocol Last Admin: 12/10/17 22:08 Dose: Not Given Lactulose (Enulose) 20 gm PO HS [facility] Last Admin: 12/10/17 22:02 Dose: 20 gm Lisinopril (Zestril) 20 mg PO DAILY [facility] Last Admin: 12/10/17 10:05 Dose: 20 mg Pneumococcal Polyvalent Vaccine (Pneumovax 23 Vaccine) 0.5 ml IM .ONCE ONE Stop: 12/13/17 10:01 Polyethylene Glycol (Miralax) 17 gm PO DAILY [facility] Last Admin: 12/10/17 10:04 Dose: 17 gm Rosuvastatin Calcium (Crestor) 20 mg PO [facility] Last Admin: 12/10/17 22:10 Dose: 20 mg Tamsulosin HCl (Flomax) 0.4 mg PO DAILY [facility] Last Admin: 12/10/17 10:03 Dose: 0.4 mg - Labs Labs: 12/10/17 07:46 12/10/17 07:46 - Additional Findings Additional findings: - Constitutional Appears: No Acute Distress - Head Exam Head Exam: ATRAUMATIC, NORMOCEPHALIC - Eye Exam Eye Exam: EOMI, Normal appearance - ENT Exam ENT Exam: Mucous Membranes Moist - Respiratory Exam Respiratory Exam: Clear to Auscultation Bilateral, NORMAL BREATHING PATTERN. absent: Rales, Rhonchi, Wheezes - Cardiovascular Exam Cardiovascular Exam: REGULAR RHYTHM, +S1, +S2 - GI/Abdominal Exam GI & Abdominal Exam: Soft, Tenderness (right lower quadrant minimal tenderness) , Normal Bowel Sounds - Extremities Exam Extremities Exam: absent: Pedal Edema, Tenderness - Back Exam Back Exam: absent: CVA tenderness (L), CVA tenderness (R) - Neurological Exam Neurological Exam: Alert, Awake, Oriented x3 - Psychiatric Exam Psychiatric exam: Normal Affect, Normal Mood - Skin Skin Exam: Dry, Warm Assessment and Plan - Assessment and Plan (Free Text) Plan: Pyelonephritis in the setting of Hx of Nephrolithiasis s/p ureteral stenting On admission, UA: protein 2+, blood 3+, nitrate positive, leuk esterase 3+, wbc 300, rbc 99, bacteria moderate Urine cultures grew gram neg rods Procalcitonin low CT abdomen/pelvis with IV contrast demonstrates mild right perinephric, right ureteral, and bladder stranding Urology consult Dr. Ale Cohen, help appreciated. Abdominal X-ray with oblique views shows resolution of prior right nephrolithiasis Meds: Tylenol 650mg prn fever Zosyn 3.375 q6h started 12/10 BPH Flomax 0.4 mg po daily History of DM II accuchecks ACHS hypoglycemia protocol HgA1C 7.3 Meds: Neurontin 100mg po daily Glimepiride 2mg po daily hold metformin ISS-low History of HTN Lisinopril 20mg po daily History of HLD Lipid panel unremarkable Home lipitor 40 mg not on formulary--Crestor 20mg po HS Prophylaxis Heparin 5000 u sc q8h, scds Pepcid 20mg po daily diabetic/heart healthy diet Discussed with Dr. Alan Dickerson PGY-1 <Merle Phillips - Last Filed: 12/11/17 18:21> Objective - Vital Signs/Intake and Output Vital Signs (last 24 hours): Temp Pulse Resp BP Pulse Ox 98.1 F 65 18 115/68 96 12/11/17 16:34 12/11/17 16:34 12/11/17 16:34 12/11/17 16:34 12/11/17 16:34 Intake and Output: 12/11/17 12/11/17 06:59 18:59 Intake Total 700 Output Total 350 Balance 350 - Medications Medications: Current Medications Acetaminophen (Tylenol 325mg Tab) 650 mg PO Q6 PRN PRN Reason: Fever >100.4 F Last Admin: 12/11/17 17:53 Dose: 650 mg Dextrose (Dextrose 50% Inj) 0 ml IV STAT PRN; Protocol PRN Reason: Hypoglycemia Protocol Dextrose (Glutose 15) 0 gm PO ONCE PRN; Protocol PRN Reason: Hypoglycemia Protocol Docusate Sodium (Colace) 100 mg PO BID [facility] Last Admin: 12/11/17 17:55 Dose: 100 mg Famotidine (Pepcid) 20 mg PO DAILY [facility] Last Admin: 12/11/17 09:33 Dose: 20 mg Gabapentin (Neurontin) 100 mg PO DAILY [facility] Last Admin: 12/11/17 09:33 Dose: 100 mg Glimepiride (Amaryl) 2 mg PO DAILY [facility] Last Admin: 12/11/17 09:33 Dose: 2 mg Glucagon (Glucagen Diagnostic Kit) 0 mg IM STAT PRN; Protocol PRN Reason: Hypoglycemia Protocol Heparin Sodium (Porcine) (Heparin) 5,000 units SC Q8 [facility] Last Admin: 12/11/17 14:39 Dose: 5,000 units Piperacillin Sod/Tazobactam Sod (Zosyn 3.375 Gm Iv Premix) 3.375 gm in 50 mls @ 100 mls/hr IVPB Q6H [facility] PRN Reason: Protocol Last Admin: 12/11/17 16:30 Dose: 100 mls/hr Insulin Human Regular (Novolin R) 0 unit SC ACHS [facility] PRN Reason: Protocol Last Admin: 12/11/17 16:30 Dose: Not Given Lisinopril (Zestril) 20 mg PO DAILY [facility] Last Admin: 12/11/17 09:33 Dose: 20 mg Pneumococcal Polyvalent Vaccine (Pneumovax 23 Vaccine) 0.5 ml IM .ONCE ONE Stop: 12/13/17 10:01 Rosuvastatin Calcium (Crestor) 20 mg PO HS [facility] Last Admin: 12/10/17 22:10 Dose: 20 mg Tamsulosin HCl (Flomax) 0.4 mg PO DAILY [facility] Last Admin: 12/11/17 09:33 Dose: 0.4 mg - Labs Labs: 12/11/17 06:43 12/11/17 06:43 Attending/Attestation - Attestation I have personally seen and examined this patient.: Yes I have fully participated in the care of the patient.: Yes I have reviewed all pertinent clinical information, including history, physical exam and plan: Yes Notes (Text): Seen and examined.Questions answered. d/w Dr cohen His fever is down,WBC improving and he is feeling better continue Zosyn. urine grows gram negative rods. we will follow c/s d/w Resident I agree with e documentation of the resident's assessment and the plan
[2017-12-11 06:59] LABS: BASO # 0.1 K/uL (0.0-0.2); BASO % 0.5 % (0.0-2.0); EOS # 0.3 K/uL (0.0-0.7); EOS % 2.3 % (0.0-4.0); HEMOGLOBIN 12.6 g/dL (12.0-18.0); LYMPH # 1.2 K/uL (1.0-4.3); LYMPH % 11.1 % (20.0-40.0); MEAN CELL VOLUME 90.3 fL (80.0-94.0); MEAN CORPUSCULAR HEMOGLOBIN 30.5 pg (27.0-31.0); MEAN CORPUSCULAR HGB CONC 33.7 g/dL (33.0-37.0); MEAN PLATELET VOLUME 7.3 fL (7.2-11.7); MONO # 1.6 K/uL (0.0-0.8); MONO % 14.2 % (0.0-10.0); NEUT # 8.1 K/uL (1.8-7.0); NEUT % 71.9 % (50.0-75.0); RBC 4.15 Mil/uL (4.40-5.90); RED CELL DISTRIBUTION WIDTH 13.7 % (11.5-14.5); WHITE BLOOD COUNT 11.2 K/uL (4.8-10.8)
[2017-12-11 07:07] LABS: BLOOD UREA NITROGEN 17 mg/dL (9-20); CALCIUM 8.9 mg/dl (8.6-10.4); GFR AFRICAN-AMERICAN > 60; GFR NON-AFRICAN AMERICAN > 60
[2017-12-11] MEDS: (Novolin R) Insulin Human Regular 100 units/ml vial SC SCH ×4 (08:30→21:45)
[2017-12-11] MEDS: POLYETHYLENE GLYCOL 3350 17 GM/Dose PACKET PO SCH (09:32)
--- NOTE | 2017-12-11 16:14 | PCM.URO ---
Urology Progress Note - Objective Lab Results Last 24 Hours: Laboratory Results - last 24 hr 12/10/17 12/10/17 12/10/17 16:09 16:12 16:32 WBC RBC Hgb Hct MCV MCH MCHC RDW Plt Count MPV Neut % (Auto) Lymph % (Auto) [place] % (Auto) Eos % (Auto) Baso % (Auto) Neut # (Auto) Lymph # (Auto) [place] # (Auto) Eos # (Auto) Baso # (Auto) Sodium Potassium Chloride Carbon Dioxide Anion Gap BUN Creatinine Est GFR ( Amer) Est GFR (Non-Af Amer) POC Glucose (mg/dL) 66 62 L 71 Random Glucose Calcium Phosphorus Magnesium 12/10/17 12/11/17 12/11/17 21:25 00:16 06:43 WBC 11.2 H RBC 4.15 L Hgb 12.6 Hct 37.5 MCV 90.3 MCH 30.5 MCHC 33.7 RDW 13.7 Plt Count 269 MPV 7.3 Neut % (Auto) 71.9 Lymph % (Auto) 11.1 L [place] % (Auto) 14.2 H Eos % (Auto) 2.3 Baso % (Auto) 0.5 Neut # (Auto) 8.1 H Lymph # (Auto) 1.2 [place] # (Auto) 1.6 H Eos # (Auto) 0.3 Baso # (Auto) 0.1 Sodium Potassium Chloride Carbon Dioxide Anion Gap BUN Creatinine Est GFR ( Amer) Est GFR (Non-Af Amer) POC Glucose (mg/dL) 90 222 H Random Glucose Calcium Phosphorus Magnesium 12/11/17 12/11/17 12/11/17 06:43 07:08 11:36 WBC RBC Hgb Hct MCV MCH MCHC RDW Plt Count MPV Neut % (Auto) Lymph % (Auto) [place] % (Auto) Eos % (Auto) Baso % (Auto) Neut # (Auto) Lymph # (Auto) [place] # (Auto) Eos # (Auto) Baso # (Auto) Sodium 137 Potassium 4.4 Chloride 101 Carbon Dioxide 26 Anion Gap 14 BUN 17 Creatinine 1.1 Est GFR ( Amer) > 60 Est GFR (Non-Af Amer) > 60 POC Glucose (mg/dL) 146 H 171 H Random Glucose 158 H Calcium 8.9 Phosphorus 3.4 Magnesium 2.1 Intake & Output: Intake & Output 12/10/17 12/11/17 12/11/17 18:59 06:59 18:59 Intake Total 730 700 Output Total 400 350 Balance 330 350 Intake: Intake, IV Amount 50 150 Left Antecubital 50 150 Oral 680 550 Output: Urine 400 350 Urine, Voided 400 350 Other: # Voids Urine, Voided 1 # Bowel Movements 1 Vital Signs: Vital Signs - 24 hr 12/10/17 12/11/17 12/11/17 20:35 00:00 08:24 Temperature 98.6 F 98.2 F Pulse Rate 85 68 Pulse Rate [ 80 Bilateral Radial] Respiratory 20 20 Rate Blood Pressure 128/69 141/73 O2 Sat by Pulse 97 96 Oximetry 12/11/17 09:31 Temperature 98.3 F Pulse Rate 71 Pulse Rate [ Bilateral Radial] Respiratory 20 Rate Blood Pressure 141/70 O2 Sat by Pulse Oximetry - Date & Time of Note Date: 12/11/17 Time: 09:40
[2017-12-12 01:11] VITALS: RESP 20
[2017-12-12] MEDS: Piperacill/Tazo 3.375gm in Dex 3.375 GM/50 ML BAG IVPB SCH ×2 (05:19→10:20)
--- NOTE | 2017-12-12 06:53 | CP.PCM.PN ---
Subjective - Date & Time of Evaluation Date of Evaluation: 12/12/17 Time of Evaluation: 07:00 - Subjective Subjective: Medicine progress note for Dr. Phillips Patient seen and examined at bedside. Objective - Vital Signs/Intake and Output Vital Signs (last 24 hours): Temp Pulse Resp BP Pulse Ox 98 F 65 20 140/78 98 12/12/17 00:00 12/12/17 00:00 12/12/17 00:00 12/12/17 00:00 12/12/17 00:00 Intake and Output: 12/11/17 12/12/17 18:59 06:59 Intake Total 340 Balance 340 - Medications Medications: Current Medications Acetaminophen (Tylenol 325mg Tab) 650 mg PO Q6 PRN PRN Reason: Fever >100.4 F Last Admin: 12/11/17 17:53 Dose: 650 mg Dextrose (Dextrose 50% Inj) 0 ml IV STAT PRN; Protocol PRN Reason: Hypoglycemia Protocol Dextrose (Glutose 15) 0 gm PO ONCE PRN; Protocol PRN Reason: Hypoglycemia Protocol Docusate Sodium (Colace) 100 mg PO BID [facility] Last Admin: 12/11/17 17:55 Dose: 100 mg Famotidine (Pepcid) 20 mg PO DAILY [facility] Last Admin: 12/11/17 09:33 Dose: 20 mg Gabapentin (Neurontin) 100 mg PO DAILY [facility] Last Admin: 12/11/17 09:33 Dose: 100 mg Glimepiride (Amaryl) 2 mg PO DAILY [facility] Last Admin: 12/11/17 09:33 Dose: 2 mg Glucagon (Glucagen Diagnostic Kit) 0 mg IM STAT PRN; Protocol PRN Reason: Hypoglycemia Protocol Heparin Sodium (Porcine) (Heparin) 5,000 units SC Q8 [facility] Last Admin: 12/12/17 05:19 Dose: 5,000 units Piperacillin Sod/Tazobactam Sod (Zosyn 3.375 Gm Iv Premix) 3.375 gm in 50 mls @ 100 mls/hr IVPB Q6H [facility] PRN Reason: Protocol Last Admin: 12/12/17 05:19 Dose: 100 mls/hr Insulin Human Regular (Novolin R) 0 unit SC ACHS KALE PRN Reason: Protocol Last Admin: 12/11/17 21:45 Dose: Not Given Lisinopril (Zestril) 20 mg PO DAILY [facility] Last Admin: 12/11/17 09:33 Dose: 20 mg Pneumococcal Polyvalent Vaccine (Pneumovax 23 Vaccine) 0.5 ml IM .ONCE ONE Stop: 12/13/17 10:01 Rosuvastatin Calcium (Crestor) 20 mg PO HS [facility] Last Admin: 12/11/17 21:44 Dose: 20 mg Tamsulosin HCl (Flomax) 0.4 mg PO DAILY [facility] Last Admin: 12/11/17 09:33 Dose: 0.4 mg - Labs Labs: 12/11/17 06:43 12/11/17 06:43 - Additional Findings Additional findings: - Constitutional Appears: No Acute Distress - Head Exam Head Exam: ATRAUMATIC, NORMOCEPHALIC - Eye Exam Eye Exam: EOMI, Normal appearance - ENT Exam ENT Exam: Mucous Membranes Moist - Respiratory Exam Respiratory Exam: Clear to Auscultation Bilateral, NORMAL BREATHING PATTERN. absent: Rales, Rhonchi, Wheezes - Cardiovascular Exam Cardiovascular Exam: REGULAR RHYTHM, +S1, +S2 - GI/Abdominal Exam GI & Abdominal Exam: Soft, Tenderness (right lower quadrant minimal tenderness) , Normal Bowel Sounds - Extremities Exam Extremities Exam: absent: Pedal Edema, Tenderness - Back Exam Back Exam: absent: CVA tenderness (L), CVA tenderness (R) - Neurological Exam Neurological Exam: Alert, Awake, Oriented x3 - Psychiatric Exam Psychiatric exam: Normal Affect, Normal Mood - Skin Skin Exam: Dry, Warm Assessment and Plan - Assessment and Plan (Free Text) Plan: Pyelonephritis in the setting of Hx of Nephrolithiasis s/p ureteral stenting On admission, UA: protein 2+, blood 3+, nitrate positive, leuk esterase 3+, wbc 300, rbc 99, bacteria moderate Urine cultures grew gram neg rods Procalcitonin low CT abdomen/pelvis with IV contrast demonstrates mild right perinephric, right ureteral, and bladder stranding Urology consult Dr. Ale Cohen, help appreciated. Abdominal X-ray with oblique views shows resolution of prior right nephrolithiasis Meds: Tylenol 650mg prn fever Zosyn 3.375 q6h started 12/10 BPH Flomax 0.4 mg po daily History of DM II accuchecks ACHS hypoglycemia protocol HgA1C 7.3 Meds: Neurontin 100mg po daily Glimepiride 2mg po daily hold metformin ISS-low History of HTN Lisinopril 20mg po daily History of HLD Lipid panel unremarkable Home lipitor 40 mg not on formulary--Crestor 20mg po HS Prophylaxis Heparin 5000 u sc q8h, scds Pepcid 20mg po daily diabetic/heart healthy diet
[2017-12-12 07:21] LABS: BASO # 0.1 K/uL (0.0-0.2); BASO % 0.7 % (0.0-2.0); EOS # 0.3 K/uL (0.0-0.7); EOS % 3.7 % (0.0-4.0); HEMOGLOBIN 12.1 g/dL (12.0-18.0); LYMPH # 1.4 K/uL (1.0-4.3); LYMPH % 16.3 % (20.0-40.0); MEAN CELL VOLUME 89.4 fL (80.0-94.0); MEAN CORPUSCULAR HGB CONC 34.7 g/dL (33.0-37.0); MEAN PLATELET VOLUME 7.1 fL (7.2-11.7); MONO # 1.2 K/uL (0.0-0.8); MONO % 14.1 % (0.0-10.0); NEUT # 5.5 K/uL (1.8-7.0); NEUT % 65.2 % (50.0-75.0); RBC 3.91 Mil/uL (4.40-5.90); RED CELL DISTRIBUTION WIDTH 13.4 % (11.5-14.5); WHITE BLOOD COUNT 8.5 K/uL (4.8-10.8)
[2017-12-12 07:36] LABS: BLOOD UREA NITROGEN 14 mg/dL (9-20); CALCIUM 8.9 mg/dl (8.6-10.4); GFR AFRICAN-AMERICAN > 60; GFR NON-AFRICAN AMERICAN > 60
[2017-12-12] MEDS: (Novolin R) Insulin Human Regular 100 units/ml vial SC SCH ×2 (08:00→11:49)
[2017-12-12 08:25] VITALS: BP 148/75; PULSE 64; TEMP 98.6; O2SAT 96
--- NOTE | 2017-12-12 11:04 | CP.PCM.DIS ---
<Marc Dickerson - Last Filed: 12/12/17 11:30> Provider - Provider Date of Admission: 12/10/17 03:17 Attending physician: Dr. Phillips Primary care physician: Damon Mcmahon MD Consults: Urology: Dr. Jaleesa Cohen Time Spent in preparation of Discharge (in minutes): 40 Diagnosis - Discharge Diagnosis (1) Pyelonephritis Status: Acute Priority: High (2) Complicated UTI (urinary tract infection) Status: Acute Priority: High (3) History of diabetes mellitus Status: Chronic Priority: Medium (4) History of hypertension Status: Chronic Priority: Medium (5) History of hyperlipidemia Status: Chronic Priority: Medium Hospital Course - Lab Results Lab Results: Micro Results 12/10/17 00:20 Urine Urine Culture - Final Escherichia Coli 12/10/17 00:45 Blood-Venous Blood Culture - Preliminary NO GROWTH AFTER 24 HOURS 12/10/17 00:15 Blood-Venous Blood Culture - Preliminary NO GROWTH AFTER 24 HOURS Most Recent Lab Values WBC 8.5 K/uL (4.8-10.8) 12/12/17 07:10 RBC 3.91 Mil/uL (4.40-5.90) L 12/12/17 07:10 Hgb 12.1 g/dL (12.0-18.0) 12/12/17 07:10 Hct 35.0 % (35.0-51.0) 12/12/17 07:10 MCV 89.4 fL (80.0-94.0) 12/12/17 07:10 MCH 31.0 pg (27.0-31.0) 12/12/17 07:10 MCHC 34.7 g/dL (33.0-37.0) 12/12/17 07:10 RDW 13.4 % (11.5-14.5) 12/12/17 07:10 Plt Count 266 K/uL (130-400) 12/12/17 07:10 MPV 7.1 fL (7.2-11.7) L 12/12/17 07:10 Neut % (Auto) 65.2 % (50.0-75.0) 12/12/17 07:10 Lymph % (Auto) 16.3 % (20.0-40.0) L 12/12/17 07:10 [place] % (Auto) 14.1 % (0.0-10.0) H 12/12/17 07:10 Eos % (Auto) 3.7 % (0.0-4.0) 12/12/17 07:10 Baso % (Auto) 0.7 % (0.0-2.0) 12/12/17 07:10 Neut # (Auto) 5.5 K/uL (1.8-7.0) 12/12/17 07:10 Lymph # (Auto) 1.4 K/uL (1.0-4.3) 12/12/17 07:10 [place] # (Auto) 1.2 K/uL (0.0-0.8) H 12/12/17 07:10 Eos # (Auto) 0.3 K/uL (0.0-0.7) 12/12/17 07:10 Baso # (Auto) 0.1 K/uL (0.0-0.2) 12/12/17 07:10 Neutrophils % (Manual) 83 % (50-75) H 12/10/17 07:46 Lymphocytes % (Manual) 10 % (20-40) L 12/10/17 07:46 Monocytes % (Manual) 7 % (0-10) 12/10/17 07:46 Platelet Estimate Normal (NORMAL) 12/10/17 07:46 Hypochromasia (manual) Slight 12/10/17 07:46 pO2 39 mm/Hg (30-55) 12/10/17 00:39 VBG pH 7.44 (7.32-7.43) H 12/10/17 00:39 VBG pCO2 29 mmHg (40-60) L 12/10/17 00:39 VBG HCO3 21.9 mmol/L 12/10/17 00:39 VBG Total CO2 20.6 mmol/L (22-28) L 12/10/17 00:39 VBG O2 Sat (Calc) 80.0 % (40-65) H 12/10/17 00:39 VBG Base Excess -3.2 mmol/L (0.0-2.0) L 12/10/17 00:39 VBG Potassium 2.7 mmol/L (3.6-5.2) L 12/10/17 00:39 Sodium 136.0 mmol/l (132-148) 12/10/17 00:39 Chloride 107.0 mmol/L (98-107) 12/10/17 00:39 Glucose 117 mg/dl (75-110) H 12/10/17 00:39 Lactate 0.6 mmol/L (0.7-2.1) L 12/10/17 00:39 Sodium 135 mmol/L (132-148) 12/12/17 07:10 Potassium 4.3 mmol/L (3.6-5.2) 12/12/17 07:10 Chloride 101 mmol/L (98-107) 12/12/17 07:10 Carbon Dioxide 25 mmol/L (22-30) 12/12/17 07:10 Anion Gap 14 (10-20) 12/12/17 07:10 BUN 14 mg/dL (9-20) 12/12/17 07:10 Creatinine 0.9 mg/dL (0.8-1.5) 12/12/17 07:10 Est GFR ( Amer) > 60 12/12/17 07:10 Est GFR (Non-Af Amer) > 60 12/12/17 07:10 POC Glucose (mg/dL) 147 mg/dL (65-110) H 12/12/17 06:55 Random Glucose 141 mg/dL (75-110) H 12/12/17 07:10 Hemoglobin A1c 7.3 % (4.2-6.5) H 12/10/17 07:46 Calcium 8.9 mg/dl (8.6-10.4) 12/12/17 07:10 Phosphorus 3.4 mg/dL (2.5-4.5) 12/12/17 07:10 Magnesium 2.1 mg/dL (1.6-2.3) 12/12/17 07:10 Total Bilirubin 1.0 mg/dL (0.2-1.3) 12/10/17 07:46 AST 31 U/L (17-59) 12/10/17 07:46 ALT 39 U/L (21-72) 12/10/17 07:46 Alkaline Phosphatase 80 U/L (38-126) 12/10/17 07:46 Total Protein 6.5 g/dL (6.3-8.3) 12/10/17 07:46 Albumin 3.7 g/dL (3.5-5.0) 12/10/17 07:46 Globulin 2.8 gm/dL (2.2-3.9) 12/10/17 07:46 Albumin/Globulin Ratio 1.3 (1.0-2.1) 12/10/17 07:46 Triglycerides 68 mg/dL (0-149) 12/10/17 07:46 Cholesterol 133 mg/dL (0-199) 12/10/17 07:46 LDL Cholesterol Direct 71 mg/dL (0-129) 12/10/17 07:46 HDL Cholesterol 42 mg/dL (30-70) 12/10/17 07:46 Procalcitonin 0.18 NG/ML (0.19-0.49) L 12/10/17 07:46 Venous Blood Potassium 2.7 mmol/L (3.6-5.2) L 12/10/17 00:39 Urine Color Red (YELLOW) 12/10/17 00:29 Urine Clarity Hazy (Clear) 12/10/17 00:29 Urine pH 5.0 (5.0-8.0) 12/10/17 00:29 Ur Specific [place] 1.009 (1.003-1.030) 12/10/17 00:29 Urine Protein 2+ mg/dL (NEGATIVE) H 12/10/17 00:29 Urine Glucose (UA) Normal mg/dL (Normal) 12/10/17 00:29 Urine Ketones Negative mg/dL (NEGATIVE) 12/10/17 00:29 Urine Blood 3+ (NEGATIVE) H 12/10/17 00:29 Urine Nitrate Positive (NEGATIVE) H 12/10/17 00:29 Urine Bilirubin Negative (NEGATIVE) 12/10/17 00:29 Urine Urobilinogen Normal mg/dL (0.2-1.0) 12/10/17 00:29 Ur Leukocyte Esterase 3+ David/uL (Negative) H 12/10/17 00:29 Urine WBC (Auto) 300 /hpf (0-5) H 12/10/17 00:29 Urine RBC (Auto) 99 /hpf (0-3) H 12/10/17 00:29 Ur Squamous Epith Cells < 1 /hpf (0-5) 12/10/17 00:29 Ur Transition Epith Cell < 1 /hpf (0-3) 12/10/17 00:29 Urine Bacteria Mod (<OCC) H 12/10/17 00:29 - Hospital Course Hospital Course: Initial Note: "Patient is a 56 year old male with past medical history of HTN, DM II, HLD, and TIA (02/13) who presents today for worsening urinary symptoms. Patient had some increased urination with darkening in color starting one month ago. He was given a referral to see Dr. Jaleesa Cohen who prescribed him Tamsulosin .4 mg daily and Doxycycline 100mg BID for 10 days (according to the bottle). Patient was taking the Doxycyline once a day since first prescribed one month ago. This past week patient's symptoms have been worsening. Patient says he has burning when he urinates and feels the urge to urinate often but can only urinate a little bit at a time. He also says his urine is dark in color. For the past day patient has felt subjective fevers. He went to Dr. Cohen's office who told him to go to the ER. Patient says this past week he has also been having right sided lower abdominal pain which radiates to the back. At its worst it is a 9/10 , but currently in the ER he rates it as a 5/10. Patient also complains of constipation for the past two months. He has been having bowel movements, but it is less than usual. He has been trying to manage the constipation by adding aloe and cucumber juice to his diet. Patient also complains of lethargy in his lower legs for the past two months. He is still able to walk normally and has no pain, but feels his legs are very tired. Patient denies any chest pain, shortness of breath, nausea, or vomiting." Hospital Course: Patient admitted with complicated UTI and evidence of right sided pyelonephritis seen on CT abdomen/pelvis. Patient was treated with Zosyn while he was in the hospital. Urine cultures grew E.coli. Patient discharged with 10 days of Cipro 500 mg PO BID for complicated UTI. Patient instructed on follow up with primary care physician as well as urology. Per urology, the right ureteral stent may be removed after resolution of infection. Pertinent imaging: CT abdomen/pelvis with IV contrast demonstrates mild right perinephric, right ureteral, and bladder stranding. Abdominal X-ray with oblique views shows resolution of prior right nephrolithiasis. This is a summary of the hospital course. For more information, refer to the medical records. Discharge Exam - Additional Findings Additional findings: - Constitutional Appears: No Acute Distress - Head Exam Head Exam: ATRAUMATIC, NORMOCEPHALIC - Eye Exam Eye Exam: EOMI, Normal appearance - ENT Exam ENT Exam: Mucous Membranes Moist - Respiratory Exam Respiratory Exam: Clear to Auscultation Bilateral, NORMAL BREATHING PATTERN. absent: Rales, Rhonchi, Wheezes - Cardiovascular Exam Cardiovascular Exam: REGULAR RHYTHM, +S1, +S2 - GI/Abdominal Exam GI & Abdominal Exam: Soft, Normal Bowel Sounds. absent: Tenderness - Extremities Exam Extremities Exam: absent: Pedal Edema, Tenderness - Back Exam Back Exam: absent: CVA tenderness (L), CVA tenderness (R) - Neurological Exam Neurological Exam: Alert, Awake, Oriented x3 - Psychiatric Exam Psychiatric exam: Normal Affect, Normal Mood - Skin Skin Exam: Dry, Warm Discharge Plan - Discharge Medications Prescriptions: Atorvastatin [Lipitor] 40 mg PO HS #30 tab Ciprofloxacin [Cipro] 500 mg PO Q12H #20 tab Gabapentin [Neurontin] 100 mg PO DAILY #30 capsule Glimepiride [amaRYL] 2 mg PO DAILY #30 tab Lisinopril [Zestril] 20 mg PO DAILY #30 tab metFORMIN [glucOPHAGE] 500 mg PO DAILY #30 tab Tamsulosin [Flomax] 0.4 mg PO DAILY #30 cap - Follow Up Plan Condition: STABLE Disposition: HOME/ ROUTINE Instructions: Ciprofloxacin (Systemic), Atorvastatin, Gabapentin, Glimepiride, Lisinopril, Metformin, Tamsulosin, Kidney Infection (DC) Additional Instructions: Please resume all of your home medications as they were prescribed except for the Doxycycline. Instead, take the antibiotic Ciprofloxacin 500 mg every 12 hours for 10 days. Take it at 8 in the morning and 8 at night. Please follow up with Dr. Mcmahon after discharge from the hospital. Please follow up with Dr. Jaleesa Cohen after you finish the 10 day course of antibiotics. If you have any new or worsening symptoms like fevers, please return to the emergency room. Por favor, reinicie todos los medicamentos de reid casa naveed vicky fueron prescritos , excepto Doxycycline. En reid lugar, tome el antibitico Ciprofloxacin 500 mg cada 12 horas jonathan 10 d as. Tmelo a las 8 de la maana y a las 8 de la noche. Por favor, angeline un seguimiento con el Dr. Reynoso despus del cynthia del hospital. Por favor, angeline un seguimiento con el Dr. Jaleesa Cohen despus de terminar el ciclo de 10 sood de antibiticos. Si tiene sntomas nuevos o que empeoran, vicky fiebres, regrese a la pillo de emergencias. Referrals: Damon Mcmahon MD [Primary Care Provider] - Jaleesa Cohen MD [Staff Provider] - <Merle Phillips - Last Filed: 12/12/17 14:56> Provider - Provider Date of Admission: 12/10/17 03:17 Attending physician: Ben El MD Primary care physician: Damon Mcmahon MD Hospital Course - Lab Results Lab Results: Micro Results 12/10/17 00:20 Urine Urine Culture - Final Escherichia Coli 12/10/17 00:45 Blood-Venous Blood Culture - Preliminary NO GROWTH AFTER 24 HOURS 12/10/17 00:15 Blood-Venous Blood Culture - Preliminary NO GROWTH AFTER 24 HOURS Most Recent Lab Values WBC 8.5 K/uL (4.8-10.8) 12/12/17 07:10 RBC 3.91 Mil/uL (4.40-5.90) L 12/12/17 07:10 Hgb 12.1 g/dL (12.0-18.0) 12/12/17 07:10 Hct 35.0 % (35.0-51.0) 12/12/17 07:10 MCV 89.4 fL (80.0-94.0) 12/12/17 07:10 MCH 31.0 pg (27.0-31.0) 12/12/17 07:10 MCHC 34.7 g/dL (33.0-37.0) 12/12/17 07:10 RDW 13.4 % (11.5-14.5) 12/12/17 07:10 Plt Count 266 K/uL (130-400) 12/12/17 07:10 MPV 7.1 fL (7.2-11.7) L 12/12/17 07:10 Neut % (Auto) 65.2 % (50.0-75.0) 12/12/17 07:10 Lymph % (Auto) 16.3 % (20.0-40.0) L 12/12/17 07:10 [place] % (Auto) 14.1 % (0.0-10.0) H 12/12/17 07:10 Eos % (Auto) 3.7 % (0.0-4.0) 12/12/17 07:10 Baso % (Auto) 0.7 % (0.0-2.0) 12/12/17 07:10 Neut # (Auto) 5.5 K/uL (1.8-7.0) 12/12/17 07:10 Lymph # (Auto) 1.4 K/uL (1.0-4.3) 12/12/17 07:10 [place] # (Auto) 1.2 K/uL (0.0-0.8) H 12/12/17 07:10 Eos # (Auto) 0.3 K/uL (0.0-0.7) 12/12/17 07:10 Baso # (Auto) 0.1 K/uL (0.0-0.2) 12/12/17 07:10 Neutrophils % (Manual) 83 % (50-75) H 12/10/17 07:46 Lymphocytes % (Manual) 10 % (20-40) L 12/10/17 07:46 Monocytes % (Manual) 7 % (0-10) 12/10/17 07:46 Platelet Estimate Normal (NORMAL) 12/10/17 07:46 Hypochromasia (manual) Slight 12/10/17 07:46 pO2 39 mm/Hg (30-55) 12/10/17 00:39 VBG pH 7.44 (7.32-7.43) H 12/10/17 00:39 VBG pCO2 29 mmHg (40-60) L 12/10/17 00:39 VBG HCO3 21.9 mmol/L 12/10/17 00:39 VBG Total CO2 20.6 mmol/L (22-28) L 12/10/17 00:39 VBG O2 Sat (Calc) 80.0 % (40-65) H 12/10/17 00:39 VBG Base Excess -3.2 mmol/L (0.0-2.0) L 12/10/17 00:39 VBG Potassium 2.7 mmol/L (3.6-5.2) L 12/10/17 00:39 Sodium 136.0 mmol/l (132-148) 12/10/17 00:39 Chloride 107.0 mmol/L (98-107) 12/10/17 00:39 Glucose 117 mg/dl (75-110) H 12/10/17 00:39 Lactate 0.6 mmol/L (0.7-2.1) L 12/10/17 00:39 Sodium 135 mmol/L (132-148) 12/12/17 07:10 Potassium 4.3 mmol/L (3.6-5.2) 12/12/17 07:10 Chloride 101 mmol/L (98-107) 12/12/17 07:10 Carbon Dioxide 25 mmol/L (22-30) 12/12/17 07:10 Anion Gap 14 (10-20) 12/12/17 07:10 BUN 14 mg/dL (9-20) 12/12/17 07:10 Creatinine 0.9 mg/dL (0.8-1.5) 12/12/17 07:10 Est GFR ( Amer) > 60 12/12/17 07:10 Est GFR (Non-Af Amer) > 60 12/12/17 07:10 POC Glucose (mg/dL) 161 mg/dL (65-110) H 12/12/17 11:28 Random Glucose 141 mg/dL (75-110) H 12/12/17 07:10 Hemoglobin A1c 7.3 % (4.2-6.5) H 12/10/17 07:46 Calcium 8.9 mg/dl (8.6-10.4) 12/12/17 07:10 Phosphorus 3.4 mg/dL (2.5-4.5) 12/12/17 07:10 Magnesium 2.1 mg/dL (1.6-2.3) 12/12/17 07:10 Total Bilirubin 1.0 mg/dL (0.2-1.3) 12/10/17 07:46 AST 31 U/L (17-59) 12/10/17 07:46 ALT 39 U/L (21-72) 12/10/17 07:46 Alkaline Phosphatase 80 U/L (38-126) 12/10/17 07:46 Total Protein 6.5 g/dL (6.3-8.3) 12/10/17 07:46 Albumin 3.7 g/dL (3.5-5.0) 12/10/17 07:46 Globulin 2.8 gm/dL (2.2-3.9) 12/10/17 07:46 Albumin/Globulin Ratio 1.3 (1.0-2.1) 12/10/17 07:46 Triglycerides 68 mg/dL (0-149) 12/10/17 07:46 Cholesterol 133 mg/dL (0-199) 12/10/17 07:46 LDL Cholesterol Direct 71 mg/dL (0-129) 12/10/17 07:46 HDL Cholesterol 42 mg/dL (30-70) 12/10/17 07:46 Procalcitonin 0.18 NG/ML (0.19-0.49) L 12/10/17 07:46 Venous Blood Potassium 2.7 mmol/L (3.6-5.2) L 12/10/17 00:39 Urine Color Red (YELLOW) 12/10/17 00:29 Urine Clarity Hazy (Clear) 12/10/17 00:29 Urine pH 5.0 (5.0-8.0) 12/10/17 00:29 Ur Specific [place] 1.009 (1.003-1.030) 12/10/17 00:29 Urine Protein 2+ mg/dL (NEGATIVE) H 12/10/17 00:29 Urine Glucose (UA) Normal mg/dL (Normal) 12/10/17 00:29 Urine Ketones Negative mg/dL (NEGATIVE) 12/10/17 00:29 Urine Blood 3+ (NEGATIVE) H 12/10/17 00:29 Urine Nitrate Positive (NEGATIVE) H 12/10/17 00:29 Urine Bilirubin Negative (NEGATIVE) 12/10/17 00:29 Urine Urobilinogen Normal mg/dL (0.2-1.0) 12/10/17 00:29 Ur Leukocyte Esterase 3+ David/uL (Negative) H 12/10/17 00:29 Urine WBC (Auto) 300 /hpf (0-5) H 12/10/17 00:29 Urine RBC (Auto) 99 /hpf (0-3) H 12/10/17 00:29 Ur Squamous Epith Cells < 1 /hpf (0-5) 12/10/17 00:29 Ur Transition Epith Cell < 1 /hpf (0-3) 12/10/17 00:29 Urine Bacteria Mod (<OCC) H 12/10/17 00:29 Attending/Attestation - Attestation I have personally seen and examined this patient.: Yes I have fully participated in the care of the patient.: Yes I have reviewed all pertinent clinical information, including history, physical exam and plan: Yes Notes (Text): Seen and examined. discharge plan discussed with the patient in detail. He was asked to see his primary care and urologist for follow up.Asked to come to ER if he get sick/ fever I agree with the documentation of the assessment and the plan 12/12/17 14:55
[2017-12-12] MEDS ORDERED: Pneumococcal 23-Valent Vaccine IM ONE (14:45)
== END 2017-12-12 16:30 | disposition home or self-care (01) | DRG 690 ==
LOC: SUPCPDRO 23:53 → C.ER 23:53 → C.3T 12-10 03:17
PROVIDERS: ADMIT Family Medicine; ATTEND Family Medicine
DX: N12 Tubulo-interstitial nephritis, not specified as acute or chronic (principal); E11.22 Type 2 diabetes mellitus with diabetic chronic kidney disease; E78.00 Pure hypercholesterolemia, unspecified; I12.9 Hypertensive chronic kidney disease with stage 1 through stage 4 chronic kidney disease, or unspecified chronic kidney disease; N18.9 Chronic kidney disease, unspecified; K59.00 Constipation, unspecified; N40.0 Benign prostatic hyperplasia without lower urinary tract symptoms; E78.5 Hyperlipidemia, unspecified; Z86.73 Personal history of transient ischemic attack (TIA), and cerebral infarction without residual deficits; Z87.891 Personal history of nicotine dependence; Z79.4 Long term (current) use of insulin

== ENCOUNTER 2017-12-13 08:53 | Emergency (ER) | payer MEDICAID, SELFPAY ==
[2017-12-13 09:09] VITALS: BMI 31.1
--- NOTE | 2017-12-13 09:29 | C.PDOC ---
History Of Present Illness VIA TRANS 56-YEAR-OLD MALE, PRESENTS TO THE EMERGENCY DEPARTMENT WITH COMPLAINTS OF NEW ONSET UPPER LIP SWELLING SINCE THIS MORNING. PS INCR SIZE. 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 NO ASSOC TONGUE SWELLING, DIFF SWALLOWING, SOB, WHEEZE, CP, HIVES, ITCH. currently on cipro for uti EXAM NARD NONTOXIC HEENT +ANGIOEDEMA UPPER LIP. TONGUE WNL, NO STRIDOR/DROOL. NECK SUPPLE CHEST CTA B/L NO W/R/R SPEAKING FULL SENTENCES CV RRR SKIN WARM DRY NO EDEMA, HIVES REMAINDER NEG Time Seen by Provider: 12/13/17 09:22 Chief Complaint (Nursing): Allergic Reaction History Per: Patient History/Exam Limitations: no limitations Past Medical History Reviewed: Historical Data, Nursing Documentation, Vital Signs Vital Signs: Last Vital Signs Temp 97.6 F 12/13/17 10:18 Pulse 60 12/13/17 10:18 Resp 20 12/13/17 10:18 BP 162/90 H 12/13/17 10:18 Pulse Ox 97 12/13/17 11:01 - Medical History PMH: HTN, Hypercholesterolemia, Kidney Stones, Chronic Kidney Disease Family History: States: No Known Family Hx - Social History Hx Alcohol Use: No Hx Substance Use: No - Immunization History Hx Tetanus Toxoid Vaccination: No Hx Influenza Vaccination: Yes Hx Pneumococcal Vaccination: Yes Review Of Systems Constitutional: Negative for: Fever ENT: Positive for: Mouth Swelling (LIP SWELL). Negative for: Throat Swelling Respiratory: Negative for: Cough, Shortness of Breath Gastrointestinal: Negative for: Vomiting Skin: Negative for: Rash Physical Exam - Physical Exam Appears: Non-toxic, No Acute Distress Skin: No Rash, Other (WARM DRY NO EDEMA, HIVES) Nose: Normal, No Flaring, No Discharge Lips: Other (+ANGIOEDEMA UPPER LIP. TONGUE WNL, NO STRIDOR/DROOL. ) Neck: Normal ROM Chest: Symmetrical Cardiovascular: Rhythm Regular, No Murmur Respiratory: No Decreased Breath Sounds, No Accessory Muscle Use, No Rales, No Rhonchi, No Wheezing, Other ( SPEAKING FULL SENTENCES) Extremity: Normal ROM, No Deformity, No Swelling Neurological/Psych: Oriented x3, Normal Speech ED Course And Treatment O2 Sat by Pulse Oximetry: 97 (RA) Pulse Ox Interpretation: Normal Disposition Counseled Patient/Family Regarding: Diagnosis, Need For Followup, Rx Given - Disposition Referrals: YOUR,PMD [Other] Disposition: HOME/ ROUTINE Disposition Time: 10:15 Condition: IMPROVED Additional Instructions: INMEDIATAMENTE DEJE DE LISINOPRIL. PEPE COOK PMD DENTRO DE 1 SEMANA PARA MEDICINA ALTERNATIVA PARA HIPERTENSIN. PREDNISONE COMPLETO SEGN LO PRESCRITO. REGRESE SI EMPEORAN LOS SNTOMAS. Prescriptions: amLODIPine [Norvasc] 5 mg PO DAILY #20 tab predniSONE [Prednisone] 60 mg PO DAILY #12 tab Instructions: Angioedema Forms: Tackk (Yakut) Print Language: GHANAIAN - Clinical Impression Clinical Impression: Angioedema - Scribe Statement The provider has reviewed the documentation as recorded by the Scribe (Bryson Mayers) All medical record entries made by the Scribe were at my direction and personally dictated by me. I have reviewed the chart and agree that the record accurately reflects my personal performance of the history, physical exam, medical decision making, and the department course for this patient. I have also personally directed, reviewed, and agree with the discharge instructions and disposition.
[2017-12-13 10:19] VITALS: BP 162/90; PULSE 60; RESP 20; TEMP 97.6
[2017-12-13 10:47] VITALS: O2SAT 97
== END 2017-12-13 10:29 | disposition home or self-care (01) ==
LOC: C.ER 08:53
DX: T78.3XXA Angioneurotic edema, initial encounter (principal)

== ENCOUNTER 2018-01-08 08:15 | Inpatient (IN) | payer MEDICAID, SELFPAY ==
[2018-01-08 08:15] VITALS: BMI 31.1
[2018-01-08] MEDS ORDERED: Sodium Chloride 0.9% 1,000 ML IV ONE (08:53)
[2018-01-08] MEDS ORDERED: Sodium Chloride 0.9% 1,000 ML ONE (09:07)
[2018-01-08 09:26] LABS: BASO # 0.2 K/uL (0.0-0.2); BASO % 1.3 % (0.0-2.0); EOS # 0.2 K/uL (0.0-0.7); EOS % 1.7 % (0.0-4.0); HEMOGLOBIN 11.9 g/dL (12.0-18.0); LYMPH # 1.6 K/uL (1.0-4.3); MEAN CELL VOLUME 88.2 fL (80.0-94.0); MEAN CORPUSCULAR HEMOGLOBIN 30.1 pg (27.0-31.0); MEAN CORPUSCULAR HGB CONC 34.1 g/dL (33.0-37.0); MEAN PLATELET VOLUME 6.7 fL (7.2-11.7); MONO # 1.4 K/uL (0.0-0.8); MONO % 9.2 % (0.0-10.0); NEUT # 11.4 K/uL (1.8-7.0); NEUT % 76.8 % (50.0-75.0); RBC 3.95 Mil/uL (4.40-5.90); RED CELL DISTRIBUTION WIDTH 13.5 % (11.5-14.5)
[2018-01-08 09:28] LABS: WHITE BLOOD COUNT 14.9 K/uL (4.8-10.8)
[2018-01-08 09:45] LABS: ALBUMIN 3.6 g/dL (3.5-5.0); ALT/SGPT 111 U/L (21-72); AST/SGOT 53 U/L (17-59); BLOOD UREA NITROGEN 19 mg/dL (9-20); CALCIUM 9.3 mg/dl (8.6-10.4); GFR AFRICAN-AMERICAN > 60; GFR NON-AFRICAN AMERICAN > 60; LIPASE 223 U/L (23-300)
--- NOTE | 2018-01-08 10:05 | C.PDOC ---
History Of Present Illness 57-year-old male, presents to the emergency department with complaints of urinary frequency, dysuria and right flank pain. Patient has a Hx of kidney stones. Patient had an x-ray done a few days ago. denies fever, hematuria, or nausea/vomiting. Time Seen by Provider: 01/08/18 08:16 Chief Complaint (Nursing): Male Genitourinary History Per: Patient History/Exam Limitations: no limitations Past Medical History Reviewed: Historical Data, Nursing Documentation, Vital Signs Vital Signs: Last Vital Signs Temp 98.0 F 01/08/18 14:44 Pulse 76 01/08/18 14:44 Resp 20 01/08/18 14:44 BP 134/70 01/08/18 14:44 Pulse Ox 99 01/08/18 17:55 - Medical History PMH: HTN, Hypercholesterolemia, Kidney Stones, Chronic Kidney Disease Family History: States: No Known Family Hx - Social History Hx Alcohol Use: No Hx Substance Use: No - Immunization History Hx Tetanus Toxoid Vaccination: No Hx Influenza Vaccination: Yes Hx Pneumococcal Vaccination: Yes Review Of Systems Constitutional: Negative for: Fever, Chills Respiratory: Negative for: Shortness of Breath Gastrointestinal: Positive for: Abdominal Pain Genitourinary: Positive for: Dysuria, Frequency. Negative for: Incontinence, Hematuria Musculoskeletal: Negative for: Back Pain Neurological: Negative for: Weakness, Numbness Physical Exam - Physical Exam Appears: Non-toxic, No Acute Distress Skin: Normal Color, Warm, Dry, No Rash Head: Normacephalic Eye(s): bilateral: PERRL Oral Mucosa: Moist Lips: Normal Appearing Neck: Normal ROM Chest: Symmetrical Cardiovascular: Rhythm Regular, No Murmur Respiratory: Normal Breath Sounds, No Accessory Muscle Use Gastrointestinal/Abdominal: Soft, Tenderness (mild, suprapubic) Extremity: Normal ROM, No Deformity, No Swelling Neurological/Psych: Oriented x3, Normal Speech ED Course And Treatment - Laboratory Results Result Diagrams: 01/08/18 09:21 01/08/18 09:21 Lab Interpretation: Abnormal O2 Sat by Pulse Oximetry: 99 (RA) Pulse Ox Interpretation: Normal - CT Scan/US No standard instances Other Rad Studies (CT/US): Read By Radiologist, Radiology Report Reviewed CT/US Interpretation: FINDINGS: LOWER THORAX: Unremarkable. LIVER: Unremarkable. No gross lesion or ductal dilatation. GALLBLADDER AND BILE DUCTS : Unremarkable. PANCREAS: Unremarkable. No gross lesion or ductal dilatation. SPLEEN: Unremarkable. ADRENALS: Unremarkable. No mass. KIDNEYS AND URETERS: Bilateral nonobstructive nephrolithiasis. Right double-J ureteral stent in place. Stable nonspecific right more than left perinephric and right periureteral stranding. No hydronephrosis. No solid mass. VASCULATURE: Calcific atherosclerosis. No aortic aneurysm. BOWEL: Unremarkable. No obstruction. No gross mural thickening. APPENDIX: Unremarkable. Normal appendix. PERITONEUM: Unremarkable. No free fluid. No free air. LYMPH NODES: Unremarkable. No enlarged lymph nodes. BLADDER: Unremarkable. REPRODUCTIVE : Mild prostatomegaly. BONES: No acute fracture. Spinal degenerative changes. OTHER FINDINGS: None. IMPRESSION: No acute abdominal pelvic pathology. Right double-J ureteral stent in place. Stable nonspecific right more than left perinephric stranding and right periureteral stranding Progress Note: Treated with IVF NSS and toradol. Treated with Rocephin IV Reassessment Condition: Improved - Physician Consult Information Physician Contacted: Merle Phillips Outcome Of Conversation: admit Medical Decision Making Medical Decision Making: Patient presents with right flank pain, H/O renal colic and stent 12/[address] Diaz Case discussed with Dr Diaz who will evaluate in hospital and remove stent Disposition Discussed With .: Merle Phillips Doctor Will See Patient In The: Hospital - Disposition Disposition: HOSPITALIZED Disposition Time: 12:00 Condition: STABLE - POA Present On Arrival: None - Clinical Impression Clinical Impression: Abdominal pain, Complicated UTI (urinary tract infection) - Scribe Statement The provider has reviewed the documentation as recorded by the Scribe (Bryson Mayers) All medical record entries made by the Scribe were at my direction and personally dictated by me. I have reviewed the chart and agree that the record accurately reflects my personal performance of the history, physical exam, medical decision making, and the department course for this patient. I have also personally directed, reviewed, and agree with the discharge instructions and disposition. Decision To Admit - Pt Status Changed To: Hospital Disposition Of: Inpatient - Admit Certification Admit to Inpatient:: After my assessment, the patient will require hospitalization for at least two midnights. This is because of the severity of symptoms shown, intensity of services needed, and/or the medical risk in this patient being treated as an outpatient. - InPatient: Physician Admission Certification: I certify that this patient requires 2 or more midnights of care for the following reason:: pyelonephritis. S/P renal stent - . Bed Request Type: Regular Admitting Physician: Merle Phillips Patient Diagnosis: Abdominal pain, Complicated UTI (urinary tract infection)
[2018-01-08 10:22] LABS: URINE BACTERIA OCC (<OCC); URINE BILIRUBIN NEGATIVE (NEGATIVE); URINE BLOOD 2+ (NEGATIVE); URINE COLOR Yellow (YELLOW); URINE GLUCOSE (UA) 1+ mg/dL (Normal); URINE LEUKOCYTE ESTERASE 3+ Leu/uL (Negative); URINE PROTEIN NEGATIVE (NEGATIVE); URINE UROBILINOGEN NORMAL mg/dL (0.2-1.0)
[2018-01-08 10:26] LABS: URINE CLARITY SLHAZY (Clear)
[2018-01-08] MEDS ORDERED: cefTRIAXone IV 1 gm in Dextros 50 ML IV STA (10:36)
--- NOTE | 2018-01-08 10:40 | CT ---
PROCEDURE: CT Abdomen and Pelvis without intravenous contrast HISTORY: Pain COMPARISON: CT scan of the abdomen and pelvis dated 12/10/2017. TECHNIQUE: Contiguous images were obtained from the domes of the diaphragms to the upper thighs without the administration of intravenous contrast. Oral contrast was not administered. Radiation dose: Total exam DLP = 847.6 mGy-cm. This CT exam was performed using one or more of the following dose reduction techniques: Automated exposure control, adjustment of the mA and/or kV according to patient size, and/or use of iterative reconstruction technique. FINDINGS: LOWER THORAX: Unremarkable. LIVER: Unremarkable. No gross lesion or ductal dilatation. GALLBLADDER AND BILE DUCTS: Unremarkable. PANCREAS: Unremarkable. No gross lesion or ductal dilatation. SPLEEN: Unremarkable. ADRENALS: Unremarkable. No mass. KIDNEYS AND URETERS: Bilateral nonobstructive nephrolithiasis. Right double-J ureteral stent in place. Stable nonspecific right more than left perinephric and right periureteral stranding. No hydronephrosis. No solid mass. VASCULATURE: Calcific atherosclerosis. No aortic aneurysm. BOWEL: Unremarkable. No obstruction. No gross mural thickening. APPENDIX: Unremarkable. Normal appendix. PERITONEUM: Unremarkable. No free fluid. No free air. LYMPH NODES: Unremarkable. No enlarged lymph nodes. BLADDER: Unremarkable. REPRODUCTIVE: Mild prostatomegaly. BONES: No acute fracture. Spinal degenerative changes. OTHER FINDINGS: None. IMPRESSION: No acute abdominal pelvic pathology. Right double-J ureteral stent in place. Stable nonspecific right more than left perinephric stranding and right periureteral stranding
[2018-01-08] MEDS ORDERED: cefTRIAXone IV 1 gm in Dextros 50 ML IVPB ONE (12:07)
[2018-01-08] MEDS ORDERED: Dextrose 50% SYRINGE Inj (50 ml) IV PRN (13:20)
[2018-01-08] MEDS ORDERED: Glucagon Recombinant 1 mg Inj IM PRN (13:20)
--- NOTE | 2018-01-08 13:20 | CP.PCM.HP ---
History of Present Illness - History of Present Illness History of Present Illness: CC: right flank pain, dysuria HPI: Patient is a 57 year old male with past medical history of HTN, DM II, HLD , nephrolithiasis, and TIA (02/13) who presents today for worsening urinary symptoms. Patient with recent admission to [facility] for pyelonephritis with discharge on 12/15. He was given 10 day course of Ciprofloxacin and was told to follow up with Dr. Cohen in his office. Patient reports he was asymptomatic up until 8 days ago when he began to experience dysuria, frequency, and urgency when urinating. Patient states he was to have removal of stent last Saturday, but was told by Dr. Cohen he "had another infection and needed another course of antibiotics." Patient says he started Levofloxacin on 01/03/18, but has not had any improvement. Yesterday he started to notice worsening pain in his right flank, and "felt hot" but denies taking his temperature. At worst pain is a 9/ 10, but currently in the ED after receiving pain medication, he rates it as a 2/ 10. He denies abdominal pain, nausea, or vomiting. Interpretation performed with [facility] service, [facility] #[id number] PMD: Dr. Mcmahon PMHx: HTN, DMII, HLD, TIA (02/13), Nephrolithiasis (lithotripsy in 11/17) Psurg: Stent placement (double J ureteral "three months ago" per pt) Famhx: Mom: DMII, glaucoma Socialhx: started smoking 10 years ago about 3-4 cigarettes per day, denies alcohol and drug use Allergies: Ciprofloxacin (rash) Home meds: Atorvastatin [Lipitor] 40 mg PO HS, Gabapentin [Neurontin] 100 mg PO DAILY Glimepiride [amaRYL] 2 mg PO DAILY Lisinopril [Zestril] 20 mg PO DAILY metFORMIN [glucOPHAGE] 500 mg PO DAILY Tamsulosin [Flomax] 0.4 mg PO DAILY Present on Admission - Present on Admission Any Indicators Present on Admission: No History of DVT/PE: No History of Uncontrolled Diabetes: No Review of Systems - Constitutional Constitutional: Fever. absent: Chills - EENT Eyes: absent: Change in Vision - Cardiovascular Cardiovascular: absent: Chest Pain, Dyspnea - Respiratory Respiratory: absent: Dyspnea - Gastrointestinal Gastrointestinal: absent: Abdominal Pain - Genitourinary Genitourinary: Difficulty Urinating, Dysuria - Musculoskeletal Musculoskeletal: absent: Back Pain, Numbness, Tingling - Integumentary Integumentary: absent: Dry Skin, Wounds - Neurological Neurological: absent: Tingling, Weakness - Psychiatric Psychiatric: absent: Anxiety, Depression Past Patient History - Infectious Disease Hx of Infectious Diseases: None - Past Medical History & Family History Past Medical History?: Yes - Past Social History Smoking Status: Never Smoked - CARDIAC Hx Hypercholesterolemia: Yes Hx Hypertension: Yes - NEUROLOGICAL Hx Neurological Disorder: Yes HX Cerebrovascular Accident: Yes - RENAL Hx Chronic Kidney Disease: Yes Hx Kidney Stones: Yes - ENDOCRINE/METABOLIC Hx Endocrine Disorders: Yes Hx Diabetes Mellitus Type 2: Yes - GENITOURINARY/GYNECOLOGICAL Hx Genitourinary Disorders: Yes Hx Hematuria: Yes - PSYCHIATRIC Hx Substance Use: No - SURGICAL HISTORY Hx Surgeries: Yes Other/Comment: Right kidney stent - ANESTHESIA Hx Anesthesia: Yes Hx Anesthesia Reactions: No Hx Malignant Hyperthermia: No Meds Allergies/Adverse Reactions: Allergies Allergy/AdvReac Type Severity Reaction Status Date / Time ciprofloxacin Allergy Verified 01/08/18 14:13 Physical Exam - Constitutional Appears: Non-toxic, No Acute Distress - Head Exam Head Exam: ATRAUMATIC, NORMAL INSPECTION - Eye Exam Eye Exam: EOMI, Normal appearance. absent: Scleral icterus - ENT Exam ENT Exam: Mucous Membranes Moist - Respiratory Exam Respiratory Exam: Clear to Auscultation Bilateral, NORMAL BREATHING PATTERN. absent: Rales, Rhonchi, Wheezes - Cardiovascular Exam Cardiovascular Exam: REGULAR RHYTHM, +S1, +S2 - GI/Abdominal Exam GI & Abdominal Exam: Normal Bowel Sounds, Soft. absent: Tenderness - Rectal Exam Rectal Exam: Deferred - Extremities Exam Extremities exam: Positive for: normal inspection. Negative for: pedal edema - Back Exam Back exam: CVA tenderness (R). absent: CVA tenderness (L) - Neurological Exam Neurological exam: Alert, CN II-XII Intact, Oriented x3 - Psychiatric Exam Psychiatric exam: Normal Affect, Normal Mood - Skin Skin Exam: Normal Color, Warm Results - Vital Signs Recent Vital Signs: Last Vital Signs Temp 97.6 F 01/08/18 08:15 Pulse 61 01/08/18 13:00 Resp 19 01/08/18 13:00 BP 144/81 01/08/18 13:00 Pulse Ox 99 01/08/18 13:00 - Labs Result Diagrams: 01/08/18 09:21 01/08/18 09:21 Labs: Laboratory Results - last 24 hr 01/08/18 01/08/18 01/08/18 09:21 09:21 09:21 WBC 14.9 H D RBC 3.95 L Hgb 11.9 L Hct 34.8 L MCV 88.2 MCH 30.1 MCHC 34.1 RDW 13.5 Plt Count 481 H D MPV 6.7 L Neut % (Auto) 76.8 H Lymph % (Auto) 11.0 L [place] % (Auto) 9.2 Eos % (Auto) 1.7 Baso % (Auto) 1.3 Neut # (Auto) 11.4 H Lymph # (Auto) 1.6 [place] # (Auto) 1.4 H Eos # (Auto) 0.2 Baso # (Auto) 0.2 Sodium 136 Potassium 4.5 Chloride 100 Carbon Dioxide 22 Anion Gap 18 BUN 19 Creatinine 1.1 Est GFR ( Amer) > 60 Est GFR (Non-Af Amer) > 60 Random Glucose 197 H Calcium 9.3 Total Bilirubin 0.4 AST 53 ALT 111 H D Alkaline Phosphatase 100 Total Protein 7.3 Albumin 3.6 Globulin 3.7 Albumin/Globulin Ratio 1.0 Lipase 223 Urine Color Yellow Urine Clarity [place] Urine pH 5.0 Ur Specific [place] 1.011 Urine Protein Negative Urine Glucose (UA) 1+ H Urine Ketones Negative Urine Blood 2+ H Urine Nitrate Positive H Urine Bilirubin Negative Urine Urobilinogen Normal Ur Leukocyte Esterase 3+ H Urine WBC (Auto) 141 H Urine RBC (Auto) 29 H Urine Bacteria Occ H Assessment & Plan - Assessment and Plan (Free Text) Plan: Pyelonephritis in the setting of Hx of Nephrolithiasis s/p ureteral stenting Admit to med/surg Pt NPO for potential procedure with Dr. Cohen Recent admission in 11/2017 for similar; D/c on 12/12/17 with 10 day course of Cipro and instructions to follow up with Dr. Cohen Afebrile, Leukocytosis CT A/P with contrast (01/08/18): No acute abdominal pelvic pathology. Right double-J ureteral stent in place. Stable nonspecific right more than left perinephric stranding and right periureteral stranding. Abdominal X-ray (12/10/17) with oblique views shows resolution of prior right nephrolithiasis UA (01/08/18): blood 2+, nitrate positive, leuk esterase 3+, wbc 300, rbc 99, bacteria moderate f/u Urine Culture Urology consult Dr. Ale Cohen, help appreciated. - stent removal scheduled for 01/10/18 Meds: Zosyn 3.375gm Q6H IV (start 01/08/18 - need broad coverage until culture) -Rocephin 1gm IV once in ED Tylenol 650mg prn fever BPH Flomax 0.4 mg po daily History of DM II accuchecks ACHS hypoglycemia protocol HgA1C 7.3 (12/10/17) Meds: Neurontin 100mg po daily Glimepiride 2mg po daily Metformin 500mg PO BID ISS-low History of HTN Lisinopril 20mg po daily History of HLD Lipid panel unremarkable Crestor 20mg po HS Elevated ALT ALT 111 on initial labs Monitor Prophylaxis Lovenox 40 SC daily, scds GI ppx not indicated diabetic/heart healthy diet Faustino Crump PGY2 Discussed with attending Dr. Banks
[2018-01-08] MEDS: Piperacill/Tazo 3.375gm in Dex 3.375 GM/50 ML BAG IVPB SCH (18:12)
[2018-01-08] MEDS: (Novolin R) Insulin Human Regular 100 units/ml vial SC SCH (21:55)
[2018-01-08] MEDS ORDERED: (Novolin R) Insulin Human Regular 100 units/ml vial SC SCH (22:00)
--- NOTE | 2018-01-08 23:31 | CP.PCM.CON ---
Past Patient History - Infectious Disease Hx of Infectious Diseases: None - Past Medical History & Family History Past Medical History?: Yes - Past Social History Smoking Status: Never Smoked - CARDIAC Hx Hypercholesterolemia: Yes Hx Hypertension: Yes - NEUROLOGICAL Hx Neurological Disorder: Yes HX Cerebrovascular Accident: Yes - RENAL Hx Chronic Kidney Disease: Yes Hx Kidney Stones: Yes - ENDOCRINE/METABOLIC Hx Endocrine Disorders: Yes Hx Diabetes Mellitus Type 2: Yes - MUSCULOSKELETAL/RHEUMATOLOGICAL Hx Falls: No - GENITOURINARY/GYNECOLOGICAL Hx Genitourinary Disorders: Yes Hx Hematuria: Yes - PSYCHIATRIC Hx Substance Use: No - SURGICAL HISTORY Hx Surgeries: Yes Other/Comment: Right kidney stent - ANESTHESIA Hx Anesthesia: Yes Hx Anesthesia Reactions: No Hx Malignant Hyperthermia: No Meds Allergies/Adverse Reactions: Allergies Allergy/AdvReac Type Severity Reaction Status Date / Time ciprofloxacin Allergy Verified 01/08/18 14:13 - Medications Medications: Current Medications Acetaminophen (Tylenol 325mg Tab) 650 mg PO Q6 PRN PRN Reason: Fever >100.4 F Dextrose (Dextrose 50% Inj) 0 ml IV STAT PRN; Protocol PRN Reason: Hypoglycemia Protocol Dextrose (Glutose 15) 0 gm PO ONCE PRN; Protocol PRN Reason: Hypoglycemia Protocol Enoxaparin Sodium (Lovenox) 40 mg SC DAILY [facility] Gabapentin (Neurontin) 100 mg PO DAILY [facility] Glimepiride (Amaryl) 2 mg PO DAILY [facility] Glucagon (Glucagen Diagnostic Kit) 0 mg IM STAT PRN; Protocol PRN Reason: Hypoglycemia Protocol Dextrose (Dextrose 5% In Water 1000 Ml) 1,000 mls @ 0 mls/hr IV .Q0M PRN; Protocol; Per Protocol PRN Reason: Hypoglycemia Protocol Piperacillin Sod/Tazobactam Sod (Zosyn 3.375 Gm Iv Premix) 3.375 gm in 50 mls @ 100 mls/hr IVPB Q6H [facility] PRN Reason: Protocol Last Admin: 01/08/18 18:12 Dose: 100 mls/hr Insulin Human Regular (Novolin R) 0 unit SC ACHS [facility] PRN Reason: Protocol Last Admin: 01/08/18 21:55 Dose: Not Given Ketorolac Tromethamine (Toradol) 30 mg IVP Q6 PRN PRN Reason: Pain, moderate (4-7) Lisinopril (Zestril) 20 mg PO DAILY [facility] Metformin HCl (Glucophage) 500 mg PO DAILY [facility] Rosuvastatin Calcium (Crestor) 20 mg PO HS [facility] Tamsulosin HCl (Flomax) 0.4 mg PO DAILY [facility] Results - Vital Signs Recent Vital Signs: Last Vital Signs Temp 98.1 F 01/08/18 16:00 Pulse 58 L 01/08/18 16:00 Resp 20 01/08/18 16:00 BP 134/82 01/08/18 16:00 Pulse Ox 99 01/08/18 17:56 - Labs Result Diagrams: 01/08/18 09:21 01/08/18 09:21 Labs: Laboratory Results - last 24 hr 01/08/18 01/08/18 01/08/18 09:21 09:21 09:21 WBC 14.9 H D RBC 3.95 L Hgb 11.9 L Hct 34.8 L MCV 88.2 MCH 30.1 MCHC 34.1 RDW 13.5 Plt Count 481 H D MPV 6.7 L Neut % (Auto) 76.8 H Lymph % (Auto) 11.0 L [place] % (Auto) 9.2 Eos % (Auto) 1.7 Baso % (Auto) 1.3 Neut # (Auto) 11.4 H Lymph # (Auto) 1.6 [place] # (Auto) 1.4 H Eos # (Auto) 0.2 Baso # (Auto) 0.2 Sodium 136 Potassium 4.5 Chloride 100 Carbon Dioxide 22 Anion Gap 18 BUN 19 Creatinine 1.1 Est GFR ( Amer) > 60 Est GFR (Non-Af Amer) > 60 POC Glucose (mg/dL) Random Glucose 197 H Calcium 9.3 Total Bilirubin 0.4 AST 53 ALT 111 H D Alkaline Phosphatase 100 Total Protein 7.3 Albumin 3.6 Globulin 3.7 Albumin/Globulin Ratio 1.0 Lipase 223 Urine Color Yellow Urine Clarity [place] Urine pH 5.[address] 1.011 Urine Protein Negative Urine Glucose (UA) 1+ H Urine Ketones Negative Urine Blood 2+ H Urine Nitrate Positive H Urine Bilirubin Negative Urine Urobilinogen Normal Ur Leukocyte Esterase 3+ H Urine WBC (Auto) 141 H Urine RBC (Auto) 29 H Urine Bacteria Occ H 01/08/18 01/08/18 01/08/18 14:41 16:47 21:12 WBC RBC Hgb Hct MCV MCH MCHC RDW Plt Count MPV Neut % (Auto) Lymph % (Auto) [place] % (Auto) Eos % (Auto) Baso % (Auto) Neut # (Auto) Lymph # (Auto) [place] # (Auto) Eos # (Auto) Baso # (Auto) Sodium Potassium Chloride Carbon Dioxide Anion Gap BUN Creatinine Est GFR ( Amer) Est GFR (Non-Af Amer) POC Glucose (mg/dL) 135 H 140 H 175 H Random Glucose Calcium Total Bilirubin AST ALT Alkaline Phosphatase Total Protein Albumin Globulin Albumin/Globulin Ratio Lipase Urine Color Urine Clarity Urine pH Ur Specific Avenue Urine Protein Urine Glucose (UA) Urine Ketones Urine Blood Urine Nitrate Urine Bilirubin Urine Urobilinogen Ur Leukocyte Esterase Urine WBC (Auto) Urine RBC (Auto) Urine Bacteria Assessment & Plan - Assessment and Plan (Free Text) Assessment: Imp: urolithiasis Hx of R ureteral stone, treated w ureteroscopy, laser lithotripsy, and stone basketing Hx of R renal stone, treated w ESWL Now with frequencey, dysuria, urgency, abnormal u/a. Leukocytosis Poss UTI Indwelling ureteral stent Rec/Plan: cultures antibiotic rx cysto, stent removal t/f Discussed w pt and family Discussed with hosp staff - Date & Time Date: 01/08/18 Time: 15:50
[2018-01-09] MEDS: Piperacill/Tazo 3.375gm in Dex 3.375 GM/50 ML BAG IVPB SCH ×4 (00:30→17:49)
[2018-01-09 06:26] LABS: BASO # 0.1 K/uL (0.0-0.2); BASO % 0.6 % (0.0-2.0); EOS # 0.2 K/uL (0.0-0.7); EOS % 1.7 % (0.0-4.0); HEMOGLOBIN 11.7 g/dL (12.0-18.0); LYMPH # 1.5 K/uL (1.0-4.3); LYMPH % 11.1 % (20.0-40.0); MEAN CELL VOLUME 87.4 fL (80.0-94.0); MEAN CORPUSCULAR HEMOGLOBIN 29.8 pg (27.0-31.0); MEAN CORPUSCULAR HGB CONC 34.1 g/dL (33.0-37.0); MEAN PLATELET VOLUME 6.6 fL (7.2-11.7); MONO % 7.7 % (0.0-10.0); NEUT # 10.4 K/uL (1.8-7.0); NEUT % 78.9 % (50.0-75.0); RBC 3.93 Mil/uL (4.40-5.90); RED CELL DISTRIBUTION WIDTH 13.7 % (11.5-14.5); WHITE BLOOD COUNT 13.1 K/uL (4.8-10.8)
[2018-01-09 06:41] LABS: ALBUMIN 3.2 g/dL (3.5-5.0); ALT/SGPT 92 U/L (21-72); AST/SGOT 52 U/L (17-59); BLOOD UREA NITROGEN 17 mg/dL (9-20); CALCIUM 9.1 mg/dl (8.6-10.4); GFR AFRICAN-AMERICAN > 60; GFR NON-AFRICAN AMERICAN > 60
[2018-01-09] MEDS: (Novolin R) Insulin Human Regular 100 units/ml vial SC SCH ×4 (08:13→22:10)
[2018-01-09] MEDS: Enoxaparin 40 mg Syringe SC SCH (09:23)
--- NOTE | 2018-01-09 15:54 | CP.PCM.PN ---
Subjective - Date & Time of Evaluation Date of Evaluation: 01/09/18 Time of Evaluation: 07:50 - Subjective Subjective: Patient seen and examined at bedside. Patient resting comfortably in bed with no new complaints at this time. I had an extensive talked with the patient explaining his infection and plans for the OR tomorrow with Dr. Cohen. Patient says he feels [facility] better today and his only complaint is discomfort with urination. Patient otherwise denies headache, dizziness, fever, chills, chest pain, SOB, palpitations, cough, abdominal pain, n/v/d/c, back pain, and calf tenderness. Objective - Vital Signs/Intake and Output Vital Signs (last 24 hours): Temp Pulse Resp BP Pulse Ox 98.2 F 75 20 144/77 98 01/09/18 07:00 01/09/18 07:00 01/09/18 07:00 01/09/18 07:00 01/09/18 07:00 Intake and Output: 01/09/18 01/09/18 06:59 18:59 Intake Total 450 1050 Balance 450 1050 - Medications Medications: Current Medications Acetaminophen (Tylenol 325mg Tab) 650 mg PO Q6 PRN PRN Reason: Fever >100.4 F Dextrose (Dextrose 50% Inj) 0 ml IV STAT PRN; Protocol PRN Reason: Hypoglycemia Protocol Dextrose (Glutose 15) 0 gm PO ONCE PRN; Protocol PRN Reason: Hypoglycemia Protocol Enoxaparin Sodium (Lovenox) 40 mg SC DAILY [facility] Last Admin: 01/09/18 09:23 Dose: 40 mg Gabapentin (Neurontin) 100 mg PO DAILY [facility] Last Admin: 01/09/18 09:23 Dose: 100 mg Glimepiride (Amaryl) 2 mg PO DAILY [facility] Last Admin: 01/09/18 09:22 Dose: 2 mg Glucagon (Glucagen Diagnostic Kit) 0 mg IM STAT PRN; Protocol PRN Reason: Hypoglycemia Protocol Dextrose (Dextrose 5% In Water 1000 Ml) 1,000 mls @ 0 mls/hr IV .Q0M PRN; Protocol; Per Protocol PRN Reason: Hypoglycemia Protocol Piperacillin Sod/Tazobactam Sod (Zosyn 3.375 Gm Iv Premix) 3.375 gm in 50 mls @ 100 mls/hr IVPB Q6H [facility] PRN Reason: Protocol Last Admin: 01/09/18 12:12 Dose: 100 mls/hr Insulin Human Regular (Novolin R) 0 unit SC ACHS [facility] PRN Reason: Protocol Last Admin: 01/09/18 12:22 Dose: 2 unit Ketorolac Tromethamine (Toradol) 30 mg IVP Q6 PRN PRN Reason: Pain, moderate (4-7) Lisinopril (Zestril) 20 mg PO DAILY [facility] Last Admin: 01/09/18 09:22 Dose: 20 mg Metformin HCl (Glucophage) 500 mg PO DAILY [facility] Last Admin: 01/09/18 09:23 Dose: 500 mg Rosuvastatin Calcium (Crestor) 20 mg PO [facility] Tamsulosin HCl (Flomax) 0.4 mg PO DAILY [facility] Last Admin: 01/09/18 09:23 Dose: 0.4 mg - Labs Labs: 01/09/18 06:17 01/09/18 06:17 - Constitutional Appears: Non-toxic, No Acute Distress - Head Exam Head Exam: ATRAUMATIC, NORMAL INSPECTION, NORMOCEPHALIC - Eye Exam Eye Exam: EOMI, Normal appearance, PERRL Pupil Exam: NORMAL ACCOMODATION, PERRL - ENT Exam ENT Exam: Mucous Membranes Moist, Normal Exam - Neck Exam Neck Exam: Full ROM, Normal Inspection. absent: Lymphadenopathy - Respiratory Exam Respiratory Exam: Clear to Ausculation Bilateral, NORMAL BREATHING PATTERN - Cardiovascular Exam Cardiovascular Exam: REGULAR RHYTHM, +S1, +S2. absent: Murmur - GI/Abdominal Exam GI & Abdominal Exam: Soft, Normal Bowel Sounds. absent: Tenderness - Extremities Exam Extremities Exam: Full ROM, Normal Capillary Refill, Normal Inspection. absent : Joint Swelling, Pedal Edema - Back Exam Back Exam: NORMAL INSPECTION - Neurological Exam Neurological Exam: Alert, Awake, Oriented x3 - Psychiatric Exam Psychiatric exam: Normal Affect, Normal Mood - Skin Skin Exam: Dry, Intact, Normal Color, Warm Assessment and Plan - Assessment and Plan (Free Text) Plan: Pyelonephritis in the setting of Hx of Nephrolithiasis s/p ureteral stenting * Leukocytosis, afebrile * Dr. Cohen consulted * stent removal planned for 01/10 * CT A/P with contrast (01/08/18): No acute abdominal pelvic pathology. Right double-J ureteral stent in place. Stable nonspecific right more than left perinephric stranding and right periureteral stranding. * Abdominal X-ray (12/10/17) with oblique views shows resolution of prior right nephrolithiasis * UA (01/08/18): blood 2+, nitrate positive, leuk esterase 3+, wbc 300, rbc 99, bacteria moderate * Urine culture (01/08): negative Meds: * Zosyn 3.375gm Q6H IV (start 01/08/18 - need broad coverage until culture) * Rocephin 1gm IV once in ED * Tylenol 650mg prn fever * Toradol 30 mg PRN pain BPH * Flomax 0.4 mg po daily History of DM II * accuchecks ACHS * hypoglycemia protocol * HgA1C 7.3 (12/10/17) Meds: * Neurontin 100mg po daily * Glimepiride 2mg po daily * Metformin 500mg PO BID * ISS-low History of HTN * Lisinopril 20mg po daily History of HLD * Lipid panel unremarkable * Crestor 20mg po HS Elevated ALT * Now down-trending * Monitor Prophylaxis * Lovenox 40 SC daily, scds * GI ppx not indicated * diabetic/heart healthy diet
[2018-01-10] MEDS: Piperacill/Tazo 3.375gm in Dex 3.375 GM/50 ML BAG IVPB SCH ×3 (00:50→12:12)
[2018-01-10 06:50] LABS: BASO # 0.2 K/uL (0.0-0.2); BASO % 1.2 % (0.0-2.0); EOS # 0.2 K/uL (0.0-0.7); EOS % 1.5 % (0.0-4.0); HEMOGLOBIN 11.8 g/dL (12.0-18.0); LYMPH # 1.5 K/uL (1.0-4.3); LYMPH % 10.9 % (20.0-40.0); MEAN CELL VOLUME 88.3 fL (80.0-94.0); MEAN CORPUSCULAR HGB CONC 33.9 g/dL (33.0-37.0); MEAN PLATELET VOLUME 6.2 fL (7.2-11.7); MONO % 7.4 % (0.0-10.0); NEUT # 10.6 K/uL (1.8-7.0); PLATELET COUNT 517 K/uL (130-400); RBC 3.93 Mil/uL (4.40-5.90); RED CELL DISTRIBUTION WIDTH 13.6 % (11.5-14.5); WHITE BLOOD COUNT 13.5 K/uL (4.8-10.8)
[2018-01-10 07:04] LABS: ALBUMIN 3.3 g/dL (3.5-5.0); ALT/SGPT 82 U/L (21-72); AST/SGOT 43 U/L (17-59); BLOOD UREA NITROGEN 17 mg/dL (9-20); CALCIUM 9.2 mg/dl (8.6-10.4); GFR AFRICAN-AMERICAN > 60; GFR NON-AFRICAN AMERICAN 52
[2018-01-10] MEDS ORDERED: Lidocaine 2% Jelly (Uro-Jet) ONE (07:36)
[2018-01-10] MEDS ORDERED: cefTRIAXone IV 1 gm in Dextros 0 ML IVPB ONE (07:36)
[2018-01-10] MEDS ORDERED: Lactated Ringer's 1,000 ML IV ONE (07:50)
[2018-01-10] MEDS ORDERED: Propofol 10 mg/ml Inj (20 ML) ONE (07:55)
[2018-01-10] MEDS ORDERED: Midazolam 2 MG/2 ML VIAL ONE (07:55)
[2018-01-10] MEDS: (Novolin R) Insulin Human Regular 100 units/ml vial SC SCH ×2 (08:14→12:10)
--- NOTE | 2018-01-10 08:24 | PCM.SURG1 ---
Surgeon's Initial Post Op Note - Surgeon's Notes Surgeon: [employer] Lab Technician: none Type of Anesthesia: IV Sedation Pre-Operative Diagnosis: urolithiasus Operative Findings: same, bph, cystitis Post-Operative Diagnosis: same Operation Performed: cysto, stent removal R Specimen/Specimens Removed: stent Estimated Blood Loss: EBL {In ML}: 0 Blood Products Given: N/A Drains Used: No Drains Post-Op Condition: Good Date of Surgery/Procedure: 01/10/18 Time of Surgery/Procedure: 08:15
[2018-01-10] MEDS ORDERED: HYDROmorphone 0.5 mg/0.5 ml ISec IVP PRN (08:28)
[2018-01-10] MEDS ORDERED: Lactated Ringer's 1,000 ML IV SCH (08:30)
[2018-01-10 09:22] VITALS: BP 112/71; PULSE 66; RESP 14; TEMP 98.4; O2SAT 100
[2018-01-10 10:05] LABS: BANDS 2 % (0-2); BASOPHIL 1 % (0-2); EOSINOPHIL 2 % (0-4); LYMPHOCYTE 13 % (20-40); METAMYELOCYTE 2 % (0-0); MONOCYTE 8 % (0-10); MYELOCYTE 2 % (0-0); NEUTROPHIL 70 % (50-75); PLATELET ESTIMATE INCREASED (NORMAL); TOTAL CELLS COUNTED 100
[2018-01-10 10:06] LABS: POIKILOCYTOSIS SLIGHT
--- NOTE | 2018-01-10 10:21 | CP.PCM.PN ---
<Phuong Alvarez - Last Filed: 01/10/18 10:18> Subjective - Date & Time of Evaluation Date of Evaluation: 01/10/18 Time of Evaluation: 07:15 - Subjective Subjective: Patient seen and examined at bedside. Patient resting comfortably in bed with no new complaints at this time. Patient I aware he is going for ureteral stent removal today and has no questions. Patient denies headache, dizziness, fever, chills, chest pain, SOB, palpitations, cough, abdominal pain, n/v/d/c, back pain , and calf tenderness. Objective - Vital Signs/Intake and Output Vital Signs (last 24 hours): Temp Pulse Resp BP Pulse Ox 98.4 F 66 14 112/71 100 01/10/18 09:00 01/10/18 09:00 01/10/18 09:00 01/10/18 09:00 01/10/18 09:00 Intake and Output: 01/10/18 01/10/18 06:59 18:59 Intake Total 580 110 Output Total 100 Balance 580 10 - Medications Medications: Current Medications Acetaminophen (Tylenol 325mg Tab) 650 mg PO Q6 PRN PRN Reason: Fever >100.4 F Dextrose (Dextrose 50% Inj) 0 ml IV STAT PRN; Protocol PRN Reason: Hypoglycemia Protocol Dextrose (Glutose 15) 0 gm PO ONCE PRN; Protocol PRN Reason: Hypoglycemia Protocol Enoxaparin Sodium (Lovenox) 40 mg SC DAILY [facility] Last Admin: 01/09/18 09:23 Dose: 40 mg Gabapentin (Neurontin) 100 mg PO DAILY [facility] Last Admin: 01/10/18 10:14 Dose: 100 mg Glimepiride (Amaryl) 2 mg PO DAILY [facility] Last Admin: 01/10/18 10:14 Dose: 2 mg Glucagon (Glucagen Diagnostic Kit) 0 mg IM STAT PRN; Protocol PRN Reason: Hypoglycemia Protocol Hydromorphone HCl (Dilaudid) 0.5 mg IVP Q10M PRN PRN Reason: Pain, moderate (4-7) Stop: 01/10/18 10:29 Dextrose (Dextrose 5% In Water 1000 Ml) 1,000 mls @ 0 mls/hr IV .Q0M PRN; Protocol; Per Protocol PRN Reason: Hypoglycemia Protocol Piperacillin Sod/Tazobactam Sod (Zosyn 3.375 Gm Iv Premix) 3.375 gm in 50 mls @ 100 mls/hr IVPB Q6H [facility] PRN Reason: Protocol Last Admin: 01/10/18 06:26 Dose: 100 mls/hr Lactated Ringer's (Lactated Ringer's) 1,000 mls @ 150 mls/hr IV .Q6H40M [facility] Last Admin: 01/10/18 10:17 Dose: 150 mls/hr Insulin Human Regular (Novolin R) 0 unit SC ACHS [facility] PRN Reason: Protocol Last Admin: 01/10/18 08:14 Dose: Not Given Ketorolac Tromethamine (Toradol) 30 mg IVP Q6 PRN PRN Reason: Pain, moderate (4-7) Lisinopril (Zestril) 20 mg PO DAILY [facility] Last Admin: 01/10/18 10:14 Dose: 20 mg Metformin HCl (Glucophage) 500 mg PO DAILY [facility] Last Admin: 01/10/18 10:14 Dose: 500 mg Morphine Sulfate (Morphine) 1 mg IVP Q15M PRN PRN Reason: Pain, severe (8-10) Stop: 01/10/18 10:26 Ondansetron HCl (Zofran Inj) 4 mg IVP ONCE PRN PRN Reason: Nausea/Vomiting Stop: 01/10/18 10:29 Rosuvastatin Calcium (Crestor) 20 mg PO HS [facility] Last Admin: 01/09/18 22:32 Dose: 20 mg Tamsulosin HCl (Flomax) 0.4 mg PO DAILY [facility] Last Admin: 01/10/18 10:14 Dose: 0.4 mg - Labs Labs: 01/10/18 06:47 01/10/18 06:47 - Additional Findings Additional findings: - Constitutional Appears: Non-toxic, No Acute Distress - Head Exam Head Exam: ATRAUMATIC, NORMAL INSPECTION, NORMOCEPHALIC - Eye Exam Eye Exam: EOMI, Normal appearance, PERRL Pupil Exam: NORMAL ACCOMODATION, PERRL - ENT Exam ENT Exam: Mucous Membranes Moist, Normal Exam - Neck Exam Neck Exam: Full ROM, Normal Inspection. absent: Lymphadenopathy - Respiratory Exam Respiratory Exam: Clear to Ausculation Bilateral, NORMAL BREATHING PATTERN - Cardiovascular Exam Cardiovascular Exam: REGULAR RHYTHM, +S1, +S2. absent: Murmur - GI/Abdominal Exam GI & Abdominal Exam: Soft, Normal Bowel Sounds. absent: Tenderness - Extremities Exam Extremities Exam: Full ROM, Normal Capillary Refill, Normal Inspection. absent : Joint Swelling, Pedal Edema - Back Exam Back Exam: NORMAL INSPECTION, No CVA tenderness - Neurological Exam Neurological Exam: Alert, Awake, Oriented x3 - Psychiatric Exam Psychiatric exam: Normal Affect, Normal Mood - Skin Skin Exam: Dry, Intact, Normal Color, Warm Assessment and Plan - Assessment and Plan (Free Text) Plan: Pyelonephritis in the setting of Hx of Nephrolithiasis s/p ureteral stenting * Leukocytosis, afebrile * Dr. Cohen consulted * stent removal planned for 01/10 * CT A/P with contrast (01/08/18): No acute abdominal pelvic pathology. Right double-J ureteral stent in place. Stable nonspecific right more than left perinephric stranding and right periureteral stranding. * Abdominal X-ray (12/10/17) with oblique views shows resolution of prior right nephrolithiasis * UA (01/08/18): blood 2+, nitrate positive, leuk esterase 3+, wbc 300, rbc 99, bacteria moderate * Urine culture (01/08): negative Meds: * Zosyn 3.375gm Q6H IV (start 01/08/18 - need broad coverage until culture) * Rocephin 1gm IV once in ED * Tylenol 650mg prn fever * Toradol 30 mg PRN pain BPH * Flomax 0.4 mg po daily History of DM II * accuchecks ACHS * hypoglycemia protocol * HgA1C 7.3 (12/10/17) Meds: * Neurontin 100mg po daily * Glimepiride 2mg po daily * Metformin 500mg PO BID * ISS-low History of HTN * Lisinopril 20mg po daily History of HLD * Lipid panel unremarkable * Crestor 20mg po HS Elevated ALT * Down-trending * Monitor Prophylaxis * Lovenox 40 SC daily, scds * GI ppx not indicated * diabetic/heart healthy diet <Rishi Reyes - Last Filed: 01/10/18 11:29> Objective - Vital Signs/Intake and Output Vital Signs (last 24 hours): Temp Pulse Resp BP Pulse Ox 98.4 F 66 14 112/71 100 01/10/18 09:00 01/10/18 09:00 01/10/18 09:00 01/10/18 09:00 01/10/18 09:00 Intake and Output: 01/10/18 01/10/18 06:59 18:59 Intake Total 580 110 Output Total 100 Balance 580 10 - Medications Medications: Current Medications Acetaminophen (Tylenol 325mg Tab) 650 mg PO Q6 PRN PRN Reason: Fever >100.4 F Dextrose (Dextrose 50% Inj) 0 ml IV STAT PRN; Protocol PRN Reason: Hypoglycemia Protocol Dextrose (Glutose 15) 0 gm PO ONCE PRN; Protocol PRN Reason: Hypoglycemia Protocol Enoxaparin Sodium (Lovenox) 40 mg SC DAILY [facility] Last Admin: 01/09/18 09:23 Dose: 40 mg Gabapentin (Neurontin) 100 mg PO DAILY [facility] Last Admin: 01/10/18 10:14 Dose: 100 mg Glimepiride (Amaryl) 2 mg PO DAILY [facility] Last Admin: 01/10/18 10:14 Dose: 2 mg Glucagon (Glucagen Diagnostic Kit) 0 mg IM STAT PRN; Protocol PRN Reason: Hypoglycemia Protocol Dextrose (Dextrose 5% In Water 1000 Ml) 1,000 mls @ 0 mls/hr IV .Q0M PRN; Protocol; Per Protocol PRN Reason: Hypoglycemia Protocol Piperacillin Sod/Tazobactam Sod (Zosyn 3.375 Gm Iv Premix) 3.375 gm in 50 mls @ 100 mls/hr IVPB Q6H [facility] PRN Reason: Protocol Last Admin: 01/10/18 06:26 Dose: 100 mls/hr Lactated Ringer's (Lactated Ringer's) 1,000 mls @ 150 mls/hr IV .Q6H40M [facility] Last Admin: 01/10/18 10:17 Dose: 150 mls/hr Insulin Human Regular (Novolin R) 0 unit SC ACHS [facility] PRN Reason: Protocol Last Admin: 01/10/18 08:14 Dose: Not Given Ketorolac Tromethamine (Toradol) 30 mg IVP Q6 PRN PRN Reason: Pain, moderate (4-7) Lisinopril (Zestril) 20 mg PO DAILY [facility] Last Admin: 01/10/18 10:14 Dose: 20 mg Metformin HCl (Glucophage) 500 mg PO DAILY [facility] Last Admin: 01/10/18 10:14 Dose: 500 mg Rosuvastatin Calcium (Crestor) 20 mg PO HS [facility] Last Admin: 01/09/18 22:32 Dose: 20 mg Tamsulosin HCl (Flomax) 0.4 mg PO DAILY [facility] Last Admin: 01/10/18 10:14 Dose: 0.4 mg - Labs Labs: 01/10/18 06:47 01/10/18 06:47 Attending/Attestation - Attestation I have personally seen and examined this patient.: Yes I have fully participated in the care of the patient.: Yes I have reviewed all pertinent clinical information, including history, physical exam and plan: Yes Notes (Text): 01/10/18 11:16 Hospitalist Progress Note Patient was seen and examined at 10:45 AM 01/10/18 351 A Upon FULL ROS NO dysphagia/odynopahgia NO soreness in throat NO cough NO sinus/nasal congestion NO fever/chills NO muscle aches/pains NO joint pain NO chest pain/palpations NO SOB NO abdominal pain NO n/v/d/c NO burning pain with urination NO PHAN NO lightheadedness/dizziness NO paresthesias Exam: General: AAOX3, NAD HEENT: NCA, EOMI, PERRLA, NO cervical/supraclavicular/submandibular lymphadenopathy, NO pharyngeal erythema/exudate, Nasal Turbinates are nonerythematous/nonedematous, Oral Mucosa is moist Cardio: NS1 and NS2, NO M/R/G Resp: CTA B/L, NO R/R/W GI: BSx4, Soft, NT, NO HSM, NO guarding/rebound tenderness, NO bilateral CVA tenderness Ext: Pulses are strong and equal, Capillary Refill is 2 seconds, NO edema Neuro: CN II through XII are grossly intact Assessments: 1). Possible Pyelonephritis with Nephritis 2). BPH 3). Hx DM 2 4). Hx HTN 5). Hx HLD 6). Elevated LFTs Spoke with Dr. Ale Cohen this morning shortly before my exam and patient is S/ P removal of Double J Stent and as Urine Culture is negative, patient is cleared from his standpoint for discharge to home and follow up as outpatient. Vitals are stable. NO CVA tenderness. NO pain on exam. Confirmed with patient that he has all of his chronic medications at home. The following instructions were explained to patient in honduran and a copy will be provided to him upon discharge: 1). Please schedule follow up with Urologist Dr. Ale Cohen by calling his office at [phone]. This appointment should take plane early next week. 2). Please schedule follow up with your Primary Care Physician Dr. Mcmahon. Please schedule this appointment with him sometime next week so that he can help you coordinate your health care. 3). You confirmed that you have all of your home medications so please take them as instructed: Metformin 500 mg, 1 tablet by mouth 1x/day (breakfast) Glimepiride 2 mg, 1 tablet by mouth 1x/day (breakfast) Gabapentin 100 mg, 1 tablet by mouth 1x/day (lunch) Atorvastatin 40 mg, 1 tablet by mouth 1x/day (dinner) Zestril 10 mg, 1 tablet by mouth 1x/day (breakfast) 4). The following new prescriptions were provided to you for you to fill on your way home from the hospital: Flomax 0.4 mg, 1 tablet by mouth 1x/day (lunch), Dispense #30, NO refills Levequin 500 mg, 1 tablet by mouth 1x/day (breakfast), Dispense #3, NO refills You stated that you already had a 7 day supply of Levequin so please finish this as well as the additional 3 tablets that you were given via prescription. 5). Please take a probiotic with Lunch time for the next 40 days. You can ask your pharmacist which one he/she recommends. 6). Stay well hydrated with water: drink at least 3 liters a day. 7). Be well, and take care. Rishi Reyes D.O.
--- NOTE | 2018-01-10 14:34 | CP.PCM.DIS ---
<Phuong Alvarez - Last Filed: 01/10/18 14:58> Provider - Provider Date of Admission: 01/08/18 12:26 Attending physician: Merle Phillips MD Consults: Dr. Cohen Time Spent in preparation of Discharge (in minutes): 35 Diagnosis - Discharge Diagnosis (1) BPH (benign prostatic hyperplasia) Status: Acute (2) Transaminitis Status: Acute (3) Pyelonephritis Status: Acute Priority: High (4) History of diabetes mellitus Status: Chronic Priority: Medium (5) History of hyperlipidemia Status: Chronic Priority: Medium (6) History of hypertension Status: Chronic Priority: Medium Hospital Course - Lab Results Lab Results: Micro Results 01/08/18 08:53 Urine Urine Culture - Final No Growth (<1,000 CFU/ML) Most Recent Lab Values WBC 13.5 K/uL (4.8-10.8) H 01/10/18 06:47 RBC 3.93 Mil/uL (4.40-5.90) L 01/10/18 06:47 Hgb 11.8 g/dL (12.0-18.0) L 01/10/18 06:47 Hct 34.7 % (35.0-51.0) L 01/10/18 06:47 MCV 88.3 fL (80.0-94.0) 01/10/18 06:47 MCH 30.0 pg (27.0-31.0) 01/10/18 06:47 MCHC 33.9 g/dL (33.0-37.0) 01/10/18 06:47 RDW 13.6 % (11.5-14.5) 01/10/18 06:47 Plt Count 517 K/uL (130-400) H 01/10/18 06:47 MPV 6.2 fL (7.2-11.7) L 01/10/18 06:47 Neut % (Auto) 79.0 % (50.0-75.0) H 01/10/18 06:47 Lymph % (Auto) 10.9 % (20.0-40.0) L 01/10/18 06:47 [place] % (Auto) 7.4 % (0.0-10.0) 01/10/18 06:47 Eos % (Auto) 1.5 % (0.0-4.0) 01/10/18 06:47 Baso % (Auto) 1.2 % (0.0-2.0) 01/10/18 06:47 Neut # (Auto) 10.6 K/uL (1.8-7.0) H 01/10/18 06:47 Lymph # (Auto) 1.5 K/uL (1.0-4.3) 01/10/18 06:47 [place] # (Auto) 1.0 K/uL (0.0-0.8) H 01/10/18 06:47 Eos # (Auto) 0.2 K/uL (0.0-0.7) 01/10/18 06:47 Baso # (Auto) 0.2 K/uL (0.0-0.2) 01/10/18 06:47 Neutrophils % (Manual) 70 % (50-75) 01/10/18 06:47 Band Neutrophils % 2 % (0-2) 01/10/18 06:47 Lymphocytes % (Manual) 13 % (20-40) L 01/10/18 06:47 Monocytes % (Manual) 8 % (0-10) 01/10/18 06:47 Eosinophils % (Manual) 2 % (0-4) 01/10/18 06:47 Basophils % (Manual) 1 % (0-2) 01/10/18 06:47 Metamyelocytes % 2 % (0-0) H 01/10/18 06:47 Myelocytes % 2 % (0-0) H 01/10/18 06:47 Platelet Estimate Increased (NORMAL) H 01/10/18 06:47 Poikilocytosis (manual Slight 01/10/18 06:47 Sodium 138 mmol/L (132-148) 01/10/18 06:47 Potassium 4.8 mmol/L (3.6-5.2) 01/10/18 06:47 Chloride 99 mmol/L (98-107) 01/10/18 06:47 Carbon Dioxide 27 mmol/L (22-30) 01/10/18 06:47 Anion Gap 17 (10-20) 01/10/18 06:47 BUN 17 mg/dL (9-20) 01/10/18 06:47 Creatinine 1.4 mg/dL (0.8-1.5) 01/10/18 06:47 Est GFR ( Amer) > 60 01/10/18 06:47 Est GFR (Non-Af Amer) 52 04 06:47 POC Glucose (mg/dL) 130 mg/dL (65-110) H 01/10/18 11:31 Random Glucose 158 mg/dL (75-110) H 01/10/18 06:47 Calcium 9.2 mg/dl (8.6-10.4) 01/10/18 06:47 Phosphorus 4.0 mg/dL (2.5-4.5) 01/09/18 06:17 Magnesium 1.8 mg/dL (1.6-2.3) 01/09/18 06:17 Total Bilirubin 0.3 mg/dL (0.2-1.3) 01/10/18 06:47 AST 43 U/L (17-59) 01/10/18 06:47 ALT 82 U/L (21-72) H 01/10/18 06:47 Alkaline Phosphatase 101 U/L (38-126) 01/10/18 06:47 Total Protein 6.8 g/dL (6.3-8.3) 01/10/18 06:47 Albumin 3.3 g/dL (3.5-5.0) L 01/10/18 06:47 Globulin 3.4 gm/dL (2.2-3.9) 01/10/18 06:47 Albumin/Globulin Ratio 1.0 (1.0-2.1) 01/10/18 06:47 Lipase 223 U/L (23-300) 01/08/18 09:21 Urine Color Yellow (YELLOW) 01/08/18 09:21 Urine Clarity Slhazy (Clear) 01/08/18 09:21 Urine pH 5.0 (5.0-8.0) 01/08/18 09:21 Ur Specific Gladys 1.011 (1.003-1.030) 01/08/18 09:21 Urine Protein Negative mg/dL (NEGATIVE) 01/08/18 09:21 Urine Glucose (UA) 1+ mg/dL (Normal) H 01/08/18 09:21 Urine Ketones Negative mg/dL (NEGATIVE) 01/08/18 09:21 Urine Blood 2+ (NEGATIVE) H 01/08/18 09:21 Urine Nitrate Positive (NEGATIVE) H 01/08/18 09:21 Urine Bilirubin Negative (NEGATIVE) 01/08/18 09:21 Urine Urobilinogen Normal mg/dL (0.2-1.0) 01/08/18 09:21 Ur Leukocyte Esterase 3+ David/uL (Negative) H 01/08/18 09:21 Urine WBC (Auto) 141 /hpf (0-5) H 01/08/18 09:21 Urine RBC (Auto) 29 /hpf (0-3) H 01/08/18 09:21 Urine Bacteria Occ (<OCC) H 01/08/18 09:21 - Hospital Course Hospital Course: Upon admission: Patient is a 57 year old male with past medical history of HTN, DM II, HLD, nephrolithiasis, and TIA (02/13) who presents today for worsening urinary symptoms. Patient with recent admission to [facility] for pyelonephritis with discharge on 12/15. He was given 10 day course of Ciprofloxacin and was told to follow up with Dr. Cohen in his office. Patient reports he was asymptomatic up until 8 days ago when he began to experience dysuria, frequency, and urgency when urinating. Patient states he was to have removal of stent last Saturday, but was told by Dr. Cohen he "had another infection and needed another course of antibiotics." Patient says he started Levofloxacin on 01/03/18, but has not had any improvement. Yesterday he started to notice worsening pain in his right flank, and "felt hot" but denies taking his temperature. At worst pain is a 9/ 10, but currently in the ED after receiving pain medication, he rates it as a 2/ 10. He denies abdominal pain, nausea, or vomiting. Hospital Course: Patient admitted to hospital 01/08 for pyelonephritis likely due to ureteral stent. ABD/Pelvic CT 01/08 showed no acute pathology; visualized right double-J ureteral stent in place with stable nonspecific R > L perinephric stranding and R periureteral stranding. Prior CXR from 12/10 showed resolution of prior R nephrolithiasis. UA 01/08 showed blood 2+, nitrate positive, leukocyte esterase 3+, WBC 300, RBC 99 and moderate bacteria. Pt placed on Zosyn 3.375gm Q6H IV, Rocephin 1gm IV once in ED and Toradol 30mg prn. Patient's home meds (Flomax 0.4mg, Lisinopril 20mg, Crestor 20mg, Glimepiride 2mg and Metformin 500mg) ordered as well. Placed on Lovenox 40 SC for prophylaxis. Seen by Dr. Cohen ( Uro) 01/08 who made plans for stent removal 01/10. Urine culture 01/08 was negative. Stents removed 01/10 without complication and patient cleared for discharge by Dr. Cohen and Dr. Reyes. A copy of patient's most recent Assessment and Plan included to help with complete picture of patient's stay: Pyelonephritis in the setting of Hx of Nephrolithiasis s/p ureteral stenting * Leukocytosis, afebrile * Dr. Cohen consulted * stent removal planned for 01/10 * CT A/P with contrast (01/08/18): No acute abdominal pelvic pathology. Right double-J ureteral stent in place. Stable nonspecific right more than left perinephric stranding and right periureteral stranding. * Abdominal X-ray (12/10/17) with oblique views shows resolution of prior right nephrolithiasis * UA (01/08/18): blood 2+, nitrate positive, leuk esterase 3+, wbc 300, rbc 99, bacteria moderate * Urine culture (01/08): negative Meds: * Zosyn 3.375gm Q6H IV (start 01/08/18 - need broad coverage until culture) * Rocephin 1gm IV once in ED * Tylenol 650mg prn fever * Toradol 30 mg PRN pain BPH * Flomax 0.4 mg po daily History of DM II * accuchecks ACHS * hypoglycemia protocol * HgA1C 7.3 (12/10/17) Meds: * Neurontin 100mg po daily * Glimepiride 2mg po daily * Metformin 500mg PO BID * ISS-low History of HTN * Lisinopril 20mg po daily History of HLD * Lipid panel unremarkable * Crestor 20mg po HS Elevated ALT * Down-trending * Monitor Prophylaxis * Lovenox 40 SC daily, scds * GI ppx not indicated * diabetic/heart healthy diet The following instructions were explained to patient in south su[place] and a copy will be provided to him upon discharge: 1). Please schedule follow up with Urologist Dr. Ale Cohen by calling his office at [phone]. This appointment should take plane early next week. 2). Please schedule follow up with your Primary Care Physician Dr. Mcmahon. Please schedule this appointment with him sometime next week so that he can help you coordinate your health care. 3). You confirmed that you have all of your home medications so please take them as instructed: Metformin 500 mg, 1 tablet by mouth 1x/day (breakfast) Glimepiride 2 mg, 1 tablet by mouth 1x/day (breakfast) Gabapentin 100 mg, 1 tablet by mouth 1x/day (lunch) Atorvastatin 40 mg, 1 tablet by mouth 1x/day (dinner) Zestril 10 mg, 1 tablet by mouth 1x/day (breakfast) 4). The following new prescriptions were provided to you for you to fill on your way home from the hospital: Flomax 0.4 mg, 1 tablet by mouth 1x/day (lunch), Dispense #30, NO refills Levequin 500 mg, 1 tablet by mouth 1x/day (breakfast), Dispense #3, NO refills You stated that you already had a 7 day supply of Levequin so please finish this as well as the additional 3 tablets that you were given via prescription. 5). Please take a probiotic with Lunch time for the next 40 days. You can ask your pharmacist which one he/she recommends. 6). Stay well hydrated with water: drink at least 3 liters a day. 7). Be well, and take care. Please note that this is a summary of events. For more details please see complete medical record. Discharge Exam - Head Exam Head Exam: ATRAUMATIC, NORMAL INSPECTION, NORMOCEPHALIC - Eye Exam Eye Exam: EOMI, Normal appearance, PERRL Pupil Exam: NORMAL ACCOMODATION, PERRL - ENT Exam ENT Exam: Mucous Membranes Moist - Respiratory Exam Respiratory Exam: Clear to PA & Lateral, NORMAL BREATHING PATTERN, UNREMARKABLE - Cardiovascular Exam Cardiovascular Exam: REGULAR RHYTHM, +S1, +S2 - GI/Abdominal Exam GI & Abdominal Exam: Normal Bowel Sounds - Extremities Exam Extremities exam: normal inspection - Back Exam Back exam: absent: CVA tenderness (L), CVA tenderness (R) - Neurological Exam Neurological exam: Alert, Oriented x3 - Psychiatric Exam Psychiatric exam: Normal Affect, Normal Mood - Skin Skin Exam: Dry, Intact, Normal Color, Warm Discharge Plan - Discharge Medications Prescriptions: Levofloxacin [Levaquin] 500 mg PO DAILY #3 tablet levoFLOXacin 500 mg in D5W [Levaquin 500MG] 500 mg PO DAILY #3 bag Tamsulosin [Flomax] 0.4 mg PO DAILY #30 cap - Follow Up Plan Condition: STABLE Disposition: HOME/ ROUTINE Instructions: Levofloxacin (Systemic), Acute Abdomen (Belly Pain), Adult (DC), Tamsulosin, Urinary Tract Infection in Men (DC) Additional Instructions: The following instructions were explained to patient in [place] and a copy will be provided to him upon discharge: 1). Please schedule follow up with Urologist Dr. Ale Cohen by calling his office at [phone]. This appointment should take plane early next week. 2). Please schedule follow up with your Primary Care Physician Dr. Mcmahon. Please schedule this appointment with him sometime next week so that he can help you coordinate your health care. 3). You confirmed that you have all of your home medications so please take them as instructed: Metformin 500 mg, 1 tablet by mouth 1x/day (breakfast) Glimepiride 2 mg, 1 tablet by mouth 1x/day (breakfast) Gabapentin 100 mg, 1 tablet by mouth 1x/day (lunch) Atorvastatin 40 mg, 1 tablet by mouth 1x/day (dinner) Zestril 10 mg, 1 tablet by mouth 1x/day (breakfast) 4). The following new prescriptions were provided to you for you to fill on your way home from the hospital: Flomax 0.4 mg, 1 tablet by mouth 1x/day (lunch), Dispense #30, NO refills Levequin 500 mg, 1 tablet by mouth 1x/day (breakfast), Dispense #3, NO refills You stated that you already had a 7 day supply of Levequin so please finish this as well as the additional 3 tablets that you were given via prescription. 5). Please take a probiotic with Lunch time for the next 40 days. You can ask your pharmacist which one he/she recommends. 6). Stay well hydrated with water: drink at least 3 liters a day. 7). Be well, and take care. Referrals: Jaleesa Cohen MD [Staff Provider] - <Rishi Reyes - Last Filed: 01/10/18 19:53> Provider - Provider Date of Admission: 01/08/18 12:26 Attending physician: Merle Phillips MD Time Spent in preparation of Discharge (in minutes): 40 Hospital Course - Lab Results Lab Results: Micro Results 01/08/18 08:53 Urine Urine Culture - Final No Growth (<1,000 CFU/ML) Most Recent Lab Values WBC 13.5 K/uL (4.8-10.8) H 01/10/18 06:47 RBC 3.93 Mil/uL (4.40-5.90) L 01/10/18 06:47 Hgb 11.8 g/dL (12.0-18.0) L 01/10/18 06:47 Hct 34.7 % (35.0-51.0) L 01/10/18 06:47 MCV 88.3 fL (80.0-94.0) 01/10/18 06:47 MCH 30.0 pg (27.0-31.0) 01/10/18 06:47 MCHC 33.9 g/dL (33.0-37.0) 04 06:47 RDW 13.6 % (11.5-14.5) 01/10/18 06:47 Plt Count 517 K/uL (130-400) H 01/10/18 06:47 MPV 6.2 fL (7.2-11.7) L 01/10/18 06:47 Neut % (Auto) 79.0 % (50.0-75.0) H 01/10/18 06:47 Lymph % (Auto) 10.9 % (20.0-40.0) L 01/10/18 06:47 [place] % (Auto) 7.4 % (0.0-10.0) 01/10/18 06:47 Eos % (Auto) 1.5 % (0.0-4.0) 01/10/18 06:47 Baso % (Auto) 1.2 % (0.0-2.0) 01/10/18 06:47 Neut # (Auto) 10.6 K/uL (1.8-7.0) H 01/10/18 06:47 Lymph # (Auto) 1.5 K/uL (1.0-4.3) 01/10/18 06:47 [place] # (Auto) 1.0 K/uL (0.0-0.8) H 01/10/18 06:47 Eos # (Auto) 0.2 K/uL (0.0-0.7) 01/10/18 06:47 Baso # (Auto) 0.2 K/uL (0.0-0.2) 01/10/18 06:47 Neutrophils % (Manual) 70 % (50-75) 01/10/18 06:47 Band Neutrophils % 2 % (0-2) 01/10/18 06:47 Lymphocytes % (Manual) 13 % (20-40) L 01/10/18 06:47 Monocytes % (Manual) 8 % (0-10) 01/10/18 06:47 Eosinophils % (Manual) 2 % (0-4) 01/10/18 06:47 Basophils % (Manual) 1 % (0-2) 01/10/18 06:47 Metamyelocytes % 2 % (0-0) H 01/10/18 06:47 Myelocytes % 2 % (0-0) H 01/10/18 06:47 Platelet Estimate Increased (NORMAL) H 01/10/18 06:47 Poikilocytosis (manual Slight 01/10/18 06:47 Sodium 138 mmol/L (132-148) 01/10/18 06:47 Potassium 4.8 mmol/L (3.6-5.2) 01/10/18 06:47 Chloride 99 mmol/L (98-107) 01/10/18 06:47 Carbon Dioxide 27 mmol/L (22-30) 01/10/18 06:47 Anion Gap 17 (10-20) 01/10/18 06:47 BUN 17 mg/dL (9-20) 01/10/18 06:47 Creatinine 1.4 mg/dL (0.8-1.5) 01/10/18 06:47 Est GFR ( Amer) > 60 01/10/18 06:47 Est GFR (Non-Af Amer) 52 01/10/18 06:47 POC Glucose (mg/dL) 130 mg/dL (65-110) H 01/10/18 11:31 Random Glucose 158 mg/dL (75-110) H 01/10/18 06:47 Calcium 9.2 mg/dl (8.6-10.4) 01/10/18 06:47 Phosphorus 4.0 mg/dL (2.5-4.5) 01/09/18 06:17 Magnesium 1.8 mg/dL (1.6-2.3) 01/09/18 06:17 Total Bilirubin 0.3 mg/dL (0.2-1.3) 01/10/18 06:47 AST 43 U/L (17-59) 01/10/18 06:47 ALT 82 U/L (21-72) H 01/10/18 06:47 Alkaline Phosphatase 101 U/L (38-126) 01/10/18 06:47 Total Protein 6.8 g/dL (6.3-8.3) 01/10/18 06:47 Albumin 3.3 g/dL (3.5-5.0) L 01/10/18 06:47 Globulin 3.4 gm/dL (2.2-3.9) 01/10/18 06:47 Albumin/Globulin Ratio 1.0 (1.0-2.1) 01/10/18 06:47 Lipase 223 U/L (23-300) 01/08/18 09:21 Urine Color Yellow (YELLOW) 01/08/18 09:21 Urine Clarity [place] (Clear) 01/08/18 09:21 Urine pH 5.0 (5.0-8.0) 01/08/18 09:21 Ur Specific Gladys 1.011 (1.003-1.030) 01/08/18 09:21 Urine Protein Negative mg/dL (NEGATIVE) 01/08/18 09:21 Urine Glucose (UA) 1+ mg/dL (Normal) H 01/08/18 09:21 Urine Ketones Negative mg/dL (NEGATIVE) 01/08/18 09:21 Urine Blood 2+ (NEGATIVE) H 01/08/18 09:21 Urine Nitrate Positive (NEGATIVE) H 01/08/18 09:21 Urine Bilirubin Negative (NEGATIVE) 01/08/18 09:21 Urine Urobilinogen Normal mg/dL (0.2-1.0) 01/08/18 09:21 Ur Leukocyte Esterase 3+ David/uL (Negative) H 01/08/18 09:21 Urine WBC (Auto) 141 /hpf (0-5) H 01/08/18 09:21 Urine RBC (Auto) 29 /hpf (0-3) H 01/08/18 09:21 Urine Bacteria Occ (<OCC) H 01/08/18 09:21 Attending/Attestation - Attestation I have personally seen and examined this patient.: Yes I have fully participated in the care of the patient.: Yes I have reviewed all pertinent clinical information, including history, physical exam and plan: Yes
[2018-01-10] MEDS: Enoxaparin 40 mg Syringe SC SCH (14:39)
--- NOTE | 2018-01-12 19:02 | RAD ---
PROCEDURE: Fluoroscopic guidance for ureteral stent HISTORY: UROLITHIASIS COMPARISON: Comparison is made to the previous x-ray of the abdomen dated 01/03/2018 TECHNIQUE: Fluoroscopic guidance was provided during right ureteral stent removal. FINDINGS: Fluoroscopic guidance was provided during right ureteral stent removal. Total fluoroscopic time is 2.1 seconds IMPRESSION: Fluoroscopic guidance.
--- NOTE | 2018-01-12 22:54 | CON ---
DATE: 01/08/2018 UROLOGY CONSULTATION Urology consultation requested by Dr. Phillips. Urology consultation filled by Dr. Jaleesa Cohen. REASON FOR CONSULTATION: UTI, urolithiasis. HISTORY OF PRESENT ILLNESS: The patient is a 57-year-old male with a history of urolithiasis. The patient presented with right renal colic secondary to a distal ureteral stone. He was also found to have a renal stone. Mr. Granados previously underwent cystoscopy and stent insertion. He previously underwent ureteroscopy and laser ureteral lithotripsy. He subsequently underwent ESWL for treatment of the right renal stone. The patient now presents with dysuria and urinary frequency. He reports occasional hematuria. No recent fever or rigors. The patient was found to have abnormal urinalysis. He is admitted for further evaluation and therapy. The patient had been scheduled for cystoscopy and stent removal on 01/10/2018. There is history of hypertension and diabetes. The patient lives with his family. For the remainder of the history, see current chart. PHYSICAL EXAMINATION GENERAL: The patient is a well-developed, well-nourished middle-aged male appearing his stated age. The patient is awake and alert. ABDOMEN: Soft, nontender, nondistended. No mass or organomegaly. BACK: No CVA tenderness. GENITALIA: Without inflammation. Normal meatus. Scrotal contents normal without inflammation. ASSESSMENT: A 57-year-old male with history of urolithiasis. History of right renal calculus, previously treated with extracorporeal shockwave lithotripsy. History of right ureteral calculus, previously treated with ureteroscopy and laser lithotripsy. The patient now has voiding symptoms. The voiding symptoms may be due to urinary tract infection. Also possible the voiding symptoms are due to the stent in place. RECOMMENDATIONS AND PLAN: Urine culture. Antibiotic therapy. Plan for cystoscopy and stent removal. Jaleesa Cohen MD cc: Aiyana Phillips md
--- NOTE | 2018-01-13 00:18 | OP ---
PROCEDURE DATE: PREOPERATIVE DIAGNOSIS: Urolithiasis. POSTOPERATIVE DIAGNOSES: Urolithiasis, cystitis. PROCEDURE: Cystoscopy. Removal of right ureteral stent. OPERATING SURGEON: Jaleesa Cohen MD DETAILS OF PROCEDURE: As follows. The patient had subgrade roller operator x-rays of the abdomen performed. There were noted to be calcifications overlying the lower pole of the right kidney. The right ureteral stent was in good position. The patient was placed in lithotomy position. Genitalia prepped and draped sterilely. The patient had been on antibiotic therapy. Sedation was provided by the anesthesiologist. A 22-Armenian cystoscope sheath was introduced per urethra. The suture attached to the stent had retracted to the main urethra. The suture was encountered. The bladder was inspected. The prostatic urethra was inspected. There was no bladder tumor. There was no bladder stone. There was diffuse inflammation of the bladder with more prominent inflammation involving the trigone. The right ureteral stent was identified and grasped with rigid grasping forceps and removed intact. The suture and stent were all removed intact. The bladder was reinspected and confirmed the above findings. The bladder was then drained. Cystoscope sheath removed. Lidocaine jelly was instilled previously. Rectal examination was performed. Prostate was supple and smooth approximately 25 gm in size. The patient was returned to the supine position. The patient tolerated procedure without complication. The patient was transferred to the PACU in satisfactory condition. Jaleesa Cohen MD
== END 2018-01-10 14:59 | disposition home or self-care (01) | DRG 694 ==
LOC: C.ER 08:15 → C.9E 12:26 → C.3T 12:54
PROVIDERS: ADMIT Internal Medicine; ATTEND Internal Medicine
PROC: 0TP98DZ Removal of Intraluminal Device from Ureter, Via Natural or Artificial Opening Endoscopic (ICD-10-PCS; principal; 2018-01-10 08:30)
DX: N20.2 Calculus of kidney with calculus of ureter (principal); N30.90 Cystitis, unspecified without hematuria; N40.0 Benign prostatic hyperplasia without lower urinary tract symptoms; Z79.84 Long term (current) use of oral hypoglycemic drugs; Z86.73 Personal history of transient ischemic attack (TIA), and cerebral infarction without residual deficits; Z87.891 Personal history of nicotine dependence; I12.9 Hypertensive chronic kidney disease with stage 1 through stage 4 chronic kidney disease, or unspecified chronic kidney disease; E78.5 Hyperlipidemia, unspecified; E11.22 Type 2 diabetes mellitus with diabetic chronic kidney disease; N18.9 Chronic kidney disease, unspecified